=== PATIENT | male | born 1950 | race Caucasian/White ===

== ENCOUNTER 2021-12-02 18:04 | Emergency (ER) | payer OTHER ==
--- OUTSIDE RECORDS SUMMARY | 2021-12-02 18:08 | XMS REPORT | Continuity of Care Document ---
:1950 Author Organization [facility] t Address [address] [place] [address] Care Team Providers Name Role Phone Andry Mandujano MD Primary Care Physician Unavailable JOI JI Attending Clinician Unavailable Manny DANIELS Attending Clinician Unavailable Jeremiah HAND TRIMMER, J Attending Clinician Ebrahim HAND TRIMMER Attending Clinician Talya JI Attending Clinician Unavailable Lowell AMADOR, S Attending Clinician Garrison YEUNG P Attending Clinician JOI JI Admitting Clinician Unavailable Payers Payer Name Policy Type Policy Number Effective Date Expiration Date S tamy [facility] MED [id number] 2021 ADVANTAGE CHOICE 00:00:00 [facility] DUAL [id number] COMPLETE SNP [facility] MEDICARE PART A \\T\\ [id number] B - MEDICARE UNITED MEDICARE HMO [id number] 2020 00:00:00 [facility] [id number] 2020 00:00:00 Problems Condition Condition Condition Status Onset Resolution Last Treating Co mments Source Name Details Category Date Date Treatment Clinician Date Inflammati Inflammati Disease Active 2019-0 U nivers on of on of 01-01 ity of sacroiliac [place]ac [place] joint joint 00 Medical Branch Lumbar Lumbar Disease Active 2017- Univers spondylosi spondylosi 2-19 it y of s s 00:00: [place] 00 Medical Branch Myofascial Myofascial Disease Active 2017-05 U nivers pain pain 2-19 ity of 00:00: [place] 00 Medical Branch Lumbar Lumbar Disease Active 2017-05 Univers radiculopa radiculopa 2-19 it y of thy thy 00:00: [place] 00 Medical Branch Spinal Spinal Disease Active 2017-05 Univers stenosis stenosis 2-19 ity of of lumbar of lumbar [place] Dyslipidem Dyslipidem Disease Active U nivers ia ia 1-19 ity of 00:00: [place] [facility] Type 2 Type 2 Disease Active Univers diabetes diabetes 7-13 ity of mellitus mellitus 00:00: [place] without without 00 Medical complicati complicati Br anch on on Essential Essential Disease Active Uni vers hypertensi hypertensi 4-04 it y of on on 00:00: Medical Branch Allergies, Adverse Reactions, Alerts Allergy Allergy Status Severity Reaction(s) Onset Inactive Treating Comm ents Source Name Type Date Date Clinician NO KNOWN Allergy Active [facility] NO KNOWN Drug Active Univers ALLERGIE Class ity of S [facility] Social History Social Habit Start Date Stop Date Quantity Comments Source History of Chews Tobacco University of tobacco use [facility] History [facility] of Alcohol Comment Medicine History [facility] ge of Alcohol Std Medicine Drinks History [facility] of Alcohol Binge Medicine Exposure to 2021-11-17 2021-11-27 Not sure [facility] SARS-CoV-2 00:00:00 09:32:00 [facility] (event) [place] Cigarette 2021-10-13 2021-10-13 [facility] of pack-years 00:00:00 00:00:00 Medicine Alcohol intake 2021-10-13 2021-10-13 Lifetime [facility] Col lege of 00:00:00 00:00:00 non-drinker Medicine (finding) History [facility] 2020-06-22 2020-06-22 1 [facility] ge of Alcohol Frequency 00:00:00 00:00:00 Medicin e Tobacco Comment 2015-08-03 2015-08-03 10 years; quit 20 Un iversity of 00:00:00 00:00:00 years ago [facility] Tobacco use and 2015-08-03 2015-08-03 Former smokeless Uni versity of exposure 00:00:00 00:00:00 tobacco user [facility] Sex Ass[birth year] At [birth year] Universit y of 00:00:00 00:00:00 [facility] Smoking Status Start Date Stop Date Source Never smoked tobacco [facility] Medications Ordered Filled Start Stop Current Ordering Indication Dosage Frequency Signature Comments Components Source Medication Medication Date Date Medication? Clinician (SIG) Name Name naproxen 2021- Yes [id number] 500mg Take 1 Univers 500 mg 7-17 07-23 tablet by ity of tablet 00:00: 04:59 mouth in [place] 00 :00 the Medical morning Branch and 1 tablet in the evening. Take with meals. Do all this for 5 days. cyclobenzap 2021- Yes [id number] 10mg Take 1 Univers rine 10 mg 7-17 07-23 tablet by ity of tablet 00:00: 04:59 mouth 3 [place] 00 :00 ([facility]) [facility] times [place] daily as needed for Muscle Spasms for up to 5 days. naproxen 2021- Yes [id number] 500mg Take 1 Univers 500 mg 7-17 07-23 tablet by ity of tablet 00:00: 04:59 mouth in [place] 00 :00 the [facility] morning Branch and 1 tablet in the evening. Take with meals. Do all this for 5 days. cyclobenzap 2021- Yes [id number] 10mg Take 1 Univers rine 10 mg 7-17 07-23 tablet by ity of tablet 00:00: 04:59 mouth 3 [place] 00 :00 (three) [facility] times [place] daily as needed for Muscle Spasms for up to 5 days. naproxen 2021- Yes [id number] 500mg Take 1 Univers 500 mg 7-17 07-23 tablet by ity of tablet 00:00: 04:59 mouth in [place] 00 :00 the Medical morning Branch and 1 tablet in the evening. Take with meals. Do all this for 5 days. cyclobenzap 2021- Yes [id number] 10mg Take 1 Univers rine 10 mg 7-17 07-23 tablet by ity of tablet 00:00: 04:59 mouth 3 [place] 00 :00 (three) Medical times Branch daily as needed for Muscle Spasms for up to 5 days. lidocaine 5 0 2021- Yes [id number] 1{patch Apply 1 Univers % (700 717 07-18 } Patch to ity of mg/patch) 00:00: 04:59 [place] patch 00 :00 once now Medical for 1 Branch dose. lidocaine 5 0 2021- Yes [id number] 1{patch Apply 1 Univers % (700 717 07-18 } Patch to ity of mg/patch) 00:00: 04:59 [place] patch 00 :00 once now Medical for 1 Branch dose. Tamsulosin Yes .4mg Take 0.4 [place] parveen HCl 0.4 MG 6-02 mg by [place] CAPS 11:56: mouth. of 12 Medicin e Insulin Yes 20U Inject 20 [place] NPH, 6-02 Units into [place] Human,, 11:56: the skin. of Isophane, 12 Medicin 100 UNIT/ML e SUPN metformin Yes 1000mg Take 1,000 Eran (GLUCOPHAGE 6-02 mg by [place] ) 1000 MG 11:56: mouth. of tablet 12 Medicin e levothyroxi Yes 50ug Take 50 [place] parveen ne 6-02 mcg by [place] (SYNTHROID) 11:56: mouth. of 50 MCG 12 Medicin tablet e HUMULIN R Yes [facility] 100 UNIT/ML 5-16 College injection 00:00: of 00 Medicin e triamcinolo 0 2021- No [id number] 16mg Univers ne 09-08 ity of acetonide 22:15: 21:10 [place] (KENALOG) 00 :00 Medical injection Branch 16 mg triamcinolo 2021- No [id number] 16mg 16 mg, [facility] [place] ne 09-08 Intra-jose ity of acetonide 22:15: 21:10 jim [place] (KENALOG) 00 :00 ONCE, 1 Medical injection dose, On Branch 16 mg Areli 09/08/21 at 1715, Routine lisinopril 0 Yes [facility] (PRINIVIL, 3-30 [place] ZESTRIL) 40 00:00: of MG tablet 00 Medicin e pravastatin Yes [facility] (PRAVACHOL) 3-27 College 80 MG 00:00: of tablet 00 Medicin e glimepiride Yes [facility] (AMARYL) 4 3-18 College MG tablet 00:00: of 00 Medicin e oxybutynin Yes [id number] TAKE ONE [facility] (DITROPAN-X 2-28 TABLET BY Col donna Houser) 10 MG CR 00:00: MOUTH of tablet 00 DAILY Medicin e bromphenira 2020-05 Yes [id number] 5mL Take 5 mL Univers mine-pseudo 0-15 by mouth 4 it y of ephedrine-D 00:00: (four[place] M (BROMFED 00 times Medical DM) 2-30-10 daily as Bran ch mg/5 mL needed for syrup Congestion /Allergies . benzonatate 2020-05 Yes [id number] 200mg Take 2 Univers 100 mg 0-15 capsules ity of capsule 00:00: [place] mouth 2 [place] 00 (two) Medical times Branch daily as needed for Cough. azelastine 2020-05 Yes [id number] 1{spray Use 1 Univers 137 mcg 0-15 } [place] ity of (0.1 %) 00:00: each [place] nasal spray 00 nostril 2 Med ical (two) Branch times daily. Use in each nostril as directed fluticasone 2020-05 Yes [id number] 1{spray Use 1 Univers propionate 0-15 } [place] in ity o f 50 00:00: each [place] mcg/actuati 00 nostril Medic al on nasal daily. Branch spray codeine-gua 2020-05 Yes 5mL Take 5 mL U nivers ifenesin 0-15 by mouth ity of 10-100 mg/5 00:00: every 6 [place] as mL oral 00 (six) Medical solution hours as Branch needed for Cough. Indication s: cough bromphenira 2020-05 Yes [id number] 5mL Take 5 mL Univers mine-pseudo 0-15 by mouth 4 it y of ephedrine-D 00:00: (four[place] M (BROMFED 00 times Medical DM) 2-30-10 daily as Bran ch mg/5 mL needed for syrup Congestion /Allergies . benzonatate 2020-05 Yes [id number] 200mg Take 2 Univers 100 mg 0-15 capsules ity of capsule 00:00: [place] mouth 2 [place] 00 (two) Medical times Branch daily as needed for Cough. azelastine 2020-05 Yes [id number] 1{spray Use 1 Univers 137 mcg 0-15 } [place] ity of (0.1 %) 00:00: each [place] nasal spray 00 nostril 2 Med ical (two) Branch times daily. Use in each nostril as directed fluticasone 2020-05 Yes [id number] 1{spray Use 1 Univers propionate 0-15 } [place] in ity o f 50 00:00: each [place] mcg/actuati 00 nostril Medic al on nasal daily. Branch spray bromphenira 2020-05 Yes [id number] 5mL Take 5 mL Univers mine-pseudo 0-15 by mouth 4 it y of ephedrine-D 00:00: (four) [place] M (BROMFED 00 times Medical DM) 2-30-10 daily as Bran ch mg/5 mL needed for syrup Congestion /Allergies . benzonatate 2020-05 Yes [id number] 200mg Take 2 Univers 100 mg 0-15 capsules ity of capsule 00:00: [place] mouth 2 [place] 00 (two) Medical times Branch daily as needed for Cough. azelastine 2020-05 Yes [id number] 1{spray Use 1 Univers 137 mcg 0-15 } [place] in ity of (0.1 %) 00:00: each [place] nasal spray 00 nostril 2 Med ical (two) Branch times daily. Use in each nostril as directed fluticasone 2020-05 Yes [id number] 1{spray Use 1 Univers propionate 0-15 } [place] in ity o f 50 00:00: each [place] mcg/actuati 00 nostril Medic al on nasal daily. Branch spray bromphenira 2020-05 Yes [id number] 5mL Take 5 mL Univers mine-pseudo 0-15 by mouth 4 it y of ephedrine-D 00:00: (four) [place] M (BROMFED 00 times Medical DM) 2-30-10 daily as Bran ch mg/5 mL needed for syrup Congestion /Allergies . benzonatate 2020-05 Yes [id number] 200mg Take 2 Univers 100 mg 0-15 capsules ity of capsule 00:00: by mouth 2 [place] 00 (two) Medical times Branch daily as needed for Cough. azelastine 2020-05 Yes [id number] 1{spray Use 1 Univers 137 mcg 0-15 } [place] in ity of (0.1 %) 00:00: each [place] nasal spray 00 nostril 2 Med ical (two) Branch times daily. Use in each nostril as directed fluticasone 2020-05 Yes [id number] 1{spray Use 1 Univers propionate 0-15 } [place] in ity o f 50 00:00: each [place] mcg/actuati 00 nostril Medic al on nasal daily. Branch spray Pseudoeph-B 2020-05 Yes 5mL Take 5 mL [place] romphen-DM 0-15 by mouth. [place] ege 30-2-10 00:00: of MG/5ML SYRP 00 Medicin e codeine-gua 2020-05- No 5mL Take 5 mL Univers ifenesin 0-15 07-17 by mouth ity of 10-100 mg/5 00:00: 00:00 every 6 [place] mL oral 00 :00 (six) Medical solution hours as Branch needed for Cough. Indication s: cough tramadol Yes [id number] 1{tbl} Take 1 [place] (ULTRAM) 50 5-27 Tablet by Col lege MG tablet 00:00: mouth of 00 every 6 Medicin hours as e needed. sulfamethox Yes [id number] 1{tbl} Take 1 [facility] azole-trime 5-27 Tablet by Col lege thoprim 00:00: mouth two of (BACTRIM 00 times Medicin DS) 800-160 daily. e MG per tablet phenazopyri Yes Take by [facility] dine 5-27 mouth [place] (PYRIDIUM) 00:00: every 8 of 200 MG 00 hours PRN. Medicin tablet e docusate Yes [id number] 100mg Take 1 [place] sodium 5-27 capsule by [place] (COLACE) 00:00: mouth two of 100 MG 00 times Medicin capsule daily. e tramadol Yes [id number] 1{tbl} Take 1 [place] (ULTRAM) 50 5-27 Tablet by Col lege MG tablet 00:00: mouth of 00 every 6 Medicin hours as e needed. sulfamethox Yes [id number] 1{tbl} Take 1 [facility] azole-trime 5-27 Tablet by Col lege thoprim 00:00: mouth two of (BACTRIM 00 times Medicin DS) 800-160 daily. e MG per tablet phenazopyri Yes [id number] Take by [facility] dine 5-27 mouth [place] (PYRIDIUM) 00:00: every 8 of 200 MG 00 hours PRN. Medicin tablet e docusate Yes [id number] 100mg Take 1 [facility] [place] sodium 5-27 capsule by [place] (COLACE) 00:00: mouth two of 100 MG 00 times Medicin capsule daily. e oxybutynin Yes [id number] 10mg Take 1 [facility] (DITROPAN-X 2-12 Tablet by Col lege L) 10 MG CR 00:00: mouth of tablet 00 daily. Medicin e methylPREDN 2019-05 Yes [id number] 84mg Take 21 Univers ISolone 1-19 [id number] tablets by ity o f (MEDROL, 00:00: mouth [place] RUY,) 4 mg 00 SEE-INSTRU Med ical tablets CTIONS. Branch follow package directions meloxicam 2019-05 Yes [id number] 7.5mg Take 1 Univers 7.5 mg 1-19 [id number] tablet by ity of tablet 00:00: mouth [place] 00 daily. Medical Branch methylPREDN 2019-05 Yes [id number] 84mg Take 21 Univers ISolone 1-19 [id number] tablets by ity o f (MEDROL, 00:00: mouth [place] RUY,) 4 mg 00 SEE-INSTRU Med ical tablets CTIONS. Branch follow package directions methylPREDN 2019-05 Yes [id number] 84mg Take 21 Univers ISolone 1-19 [id number] tablets by ity o f (MEDROL, 00:00: mouth [place] RUY,) 4 mg 00 SEE-INSTRU Med ical tablets CTIONS. Branch follow package directions methylPREDN 2019-05 Yes [id number] 84mg Take 21 Univers ISolone 1-19 [id number] tablets by ity o f (MEDROL, 00:00: mouth [place] RUY,) 4 mg 00 SEE-INSTRU Med ical tablets CTIONS. Branch follow package directions meloxicam 2019-05- No [id number] 7.5mg Take 1 Univers 7.5 mg 06-01 [id number] tablet by ity of tablet 00:00: 00:00 mouth [place] 00 :00 daily. Medical Branch atorvastati 2017-0 Yes [id number] 20mg Take 1 Univers n (LIPITOR) 5-14 tablet by ity of 20 mg 00:00: mouth at [place] tablet 00 bedtime. Medical Branch atorvastati 0 Yes [id number] 20mg Take 1 Univers n (LIPITOR) 5-14 tablet by ity of 20 mg 00:00: mouth at [place] tablet 00 bedtime. Medical Branch atorvastati 0 Yes [id number] 20mg Take 1 Univers n (LIPITOR) 5-14 tablet by ity of 20 mg 00:00: mouth at [place] tablet 00 bedtime. Medical Branch atorvastati 0 Yes [id number] 20mg Take 1 Univers n (LIPITOR) 5-14 tablet by ity of 20 mg 00:00: mouth at [place] tablet 00 bedtime. Medical Branch lisinopril 2017-0 Yes [id number] 40mg Take 1 U nivers 40 mg 5-08 tablet by ity of tablet 00:00: mouth [place] 00 daily. Medical Branch lisinopril 2017-0 Yes [id number] 40mg Take 1 U nivers 40 mg 5-08 tablet by ity of tablet 00:00: mouth [place] 00 daily. Medical Branch lisinopril 2017-0 Yes [id number] 40mg Take 1 U nivers 40 mg 5-08 tablet by ity of tablet 00:00: mouth [place] 00 daily. Medical Branch lisinopril 2017-0 Yes [id number] 40mg Take 1 U nivers 40 mg 5-08 tablet by ity of tablet 00:00: mouth [place] 00 daily. Medical Branch acetaminoph 2016-05 Yes [id number] 2 - 1 Univers en-codeine 2-31 tab Every ity of 300-30 mg 00:00: 4hrs as [place] tablet 00 needed for Medical pain or Branch cough requiring narcotic acetaminoph 2016-05 Yes [id number] 2 - Univers en-codeine 2-31 tab Every ity of 300-30 mg 00:00: 4hrs as [place] tablet 00 needed for Medical pain or Branch cough requiring narcotic acetaminoph 2016-05 Yes [id number] 05/15 Univers en-codeine 2-31 tab Every ity of 300-30 mg 00:00: 4hrs as [place] tablet 00 needed for Medical pain or Branch cough requiring narcotic acetaminoph 2016-05 Yes [id number] 05/15 Univers en-codeine 2-31 tab Every ity of 300-30 mg 00:00: 4hrs as [place] tablet 00 needed for Medical pain or Branch cough requiring narcotic AMLODIPINE 2016-05 Yes [id number] TAKE ONE Univers 10 mg 2-22 TABLET BY ity of tablet 00:00: MOUTH ONCE DAILY Medical Branch AMLODIPINE 2016-05 Yes [id number] TAKE ONE Univers 10 mg 2-22 TABLET BY ity of tablet 00:00: MOUTH ONCE DAILY Medical Branch AMLODIPINE 2016-05 Yes [id number] TAKE ONE Univers 10 mg 2-22 TABLET BY ity of tablet 00:00: MOUTH ONCE DAILY Medical Branch AMLODIPINE 2016-05 Yes [id number] TAKE ONE Univers 10 mg 2-22 TABLET BY ity of tablet 00:00: MOUTH ONCE DAILY Medical Branch insulin Yes [id number] Take 22 Un aditya 70/30 100 8-16 units ity of unit/mL 00:00: before (30) 00 breakfast Medical injection and 20 Branch units before dinner- Take 30 minutes before meals twice daily insulin Yes [id number] Take 22 Un aditya 70/30 100 8-16 units ity of unit/mL 00:00: before (30) 00 breakfast Medical injection and 20 Branch units before dinner- Take 30 minutes before meals twice daily insulin Yes [id number] Take 22 Un aditya 70/30 100 8-16 units ity of unit/mL 00:00: before (-30) 00 breakfast Medical injection and 20 Branch units before dinner- Take 30 minutes before meals twice daily insulin Yes [id number] Take 22 Un aditya 70/30 100 8-16 units ity of unit/mL 00:00: before (30) 00 breakfast Medical injection and 20 Branch units before dinner- Take 30 minutes before meals twice daily metformin Yes [id number] 1000mg Take 2 Univers ER 500 mg 5-10 tablets by ity of 24 hr 00:00: mouth 2 [place] tablet 00 (two) Medical times Branch daily with meals. glimepiride Yes [id number] 4mg Take 1 Univers (AMARYL) 4 5-10 tablet by ity of mg tablet 00:00: mouth 2 [place] 00 (two) Medical times Branch daily. metformin Yes [id number] 1000mg Take 2 Univers ER 500 mg 5-10 tablets by ity of 24 hr 00:00: mouth 2 [place] tablet 00 (two) Medical times Branch daily with meals. glimepiride Yes [id number] 4mg Take 1 Univers (AMARYL) 4 5-10 tablet by ity of mg tablet 00:00: mouth 2 [place] (two) Medical times Branch daily. metformin Yes [id number] 1000mg Take 2 Univers ER 500 mg 5-10 tablets by ity of 24 hr 00:00: mouth 2 [place] tablet 00 (two) Medical times Branch daily with meals. glimepiride Yes [id number] 4mg Take 1 Univers (AMARYL) 4 5-10 tablet by ity of mg tablet 00:00: mouth 2 (two) Medical times Branch daily. metformin Yes [id number] 1000mg Take 2 Univers ER 500 mg 5-10 tablets by ity of 24 hr 00:00: mouth 2 [place] tablet 00 (two) Medical times Branch daily with meals. glimepiride Yes [id number] 4mg Take 1 Univers (AMARYL) 4 5-10 tablet by ity of mg tablet 00:00: mouth 2 (two) Medical times Branch daily. NAPROXEN Yes TAKE ONE Unive rs 500 mg 3-27 TABLET BY ity of tablet 00:00: MOUTH 00 TWICE Medical DAILY WITH Branch MEALS NAPROXEN 2021- No TAKE ONE Univ ers 500 mg 3-27 07-17 TABLET BY ity of tablet 00:00: 00:00 MOUTH [place] 00 :00 TWICE Medical DAILY WITH Branch MEALS mupirocin 2 Yes [id number] Apply to Univers % ointment 08-05 [id number] area(s) 3 it y of 00:00: (three) [place] 00 times Medical daily. Branch mupirocin 2 Yes [id number] Apply to Univers % ointment 3-25 [id number] area(s) 3 it y of 00:00: (three) [place] 00 times Medical daily. Branch mupirocin 2 Yes [id number] Apply to Univers % ointment 3-25 [id number] area(s) 3 it y of 00:00: (three) [place] 00 times Medical daily. Branch mupirocin 2 Yes [id number] Apply to Univers % ointment 3-25 [id number] area(s) 3 it y of 00:00: (three) [place] 00 times Medical daily. Branch insulin Yes [id number] Use twice Univers syringe,saf 4-04 daily ity of etyneedle 00:00: [place] ([facility] Medical INSULIN Branch SAFETY SYRNG) 1 mL 29 gauge x 1/2" Syrg insulin Yes [id number] Use twice Univers syringe,saf 4-04 daily ity of etyneedle 00:00: [place] ([facility] Medical INSULIN Branch SAFETY SYRNG) 1 mL 29 gauge x 1/2" Syrg insulin Yes [id number] Use twice Univers syringe,saf 4-04 daily ity of etyneedle 00:00: [place] ([facility] Medical INSULIN Branch SAFETY SYRNG) 1 mL 29 gauge x 1/2" Syrg insulin Yes [id number] Use twice Univers syringe,saf 4-04 daily ity of etyneedle 00:00: [place] ([facility] Medical INSULIN Branch SAFETY SYRNG) 1 mL 29 gauge x 1/2" Syrg Vital Signs Vital Name Observation Time Observation Value Comments Source HEIGHT 2020-10-07 08:43:00 180.3 cm WEIGHT 2020-10-07 08:43:00 107.14 kg HEIGHT 2020-09-17 14:46:00 180.3 cm WEIGHT 2020-09-17 14:46:00 102.059 kg Systolic blood 2021-11-27 14:34:00 172 mm[Hg] Univer sity of pressure [facility] Diastolic blood 2021-11-27 14:34:00 76 mm[Hg] Unive rsity of pressure [facility] Heart rate 2021-11-27 14:33:00 74 /min Universi ty of [facility] Body temperature 2021-11-27 14:33:00 36.11 Joelle [facility] Respiratory rate 2021-11-27 14:33:00 16 /min [facility] Body height 2021-11-27 14:33:00 180.3 cm Universi ty of [facility] Body weight 2021-11-27 14:33:00 103.783 kg Universi ty of [facility] BMI 2021-11-27 14:33:00 31.91 kg/m2 Universi ty of [facility] Oxygen saturation in 2021-11-27 14:33:00 96 /min [facility] Arterial blood by [facility] Pulse oximetry Branch Systolic blood 2021-10-13 16:09:00 150 mm[Hg] [facility] pressure Medicine Diastolic blood 2021-10-13 16:09:00 76 mm[Hg] [facility] pressure Medicine Heart rate 2021-10-13 16:09:00 73 /min [facility] Systolic blood 2021-09-08 21:08:00 173 mm[Hg] Univer sity of [facility] Diastolic blood 2021-09-08 21:08:00 82 mm[Hg] [facility] Heart rate 2021-09-08 21:08:00 65 /min Universi ty of [facility] Body height 2021-09-08 21:00:00 180.3 cm Universi ty of [facility] Body weight 2021-09-08 21:00:00 104.327 kg Universi ty of [facility] BMI 2021-09-08 21:00:00 32.08 kg/m2 Universi ty of [facility] HEIGHT 2020-10-07 08:43:00 180.3 cm WEIGHT 2020-10-07 08:43:00 107.14 kg HEIGHT 2020-09-17 14:46:00 180.3 cm WEIGHT 2020-09-17 14:46:00 102.059 kg Procedures Procedure Date / Time Performed Performing Clinician Sourc e XR LUMBAR SPINE 3 VW 2021-11-27 15:25:00 Ciaran Daniels [facility] KERRY,POST-VOID 2021-10-13 00:00:00 [facility],NON-IMG Medicine KERRY,POST-VOID 2021-10-13 00:00:00 Moriah Ji [facility],NON-IMG Medicine POCT URINALYSIS 2021-10-13 00:00:00 [facility] of DIPSTICK Medicine Plan of Care Planned Activity Planned Date Details Comments Source Future Scheduled 2021-10-13 Screening for [facility] Col lege of Test 11:18:30 malignant neoplasm of Medici ne colon (procedure) [code = 671371149] Future Scheduled 2021-10-13 COVID-19 Vaccine (#1) [facility] Test 11:18:30 [code = COVID-19 Medicine Vaccine (#1)] Future Scheduled 2021-10-13 TETANUS SHOT (ADULT) [facility] Test 11:18:30 [code = TETANUS SHOT Medicin e (ADULT)] Future Scheduled 2021-10-13 BMI FOLLOW UP PLAN [facility] Test 11:18:30 [code = BMI FOLLOW UP Medici ne PLAN] Future Scheduled 2021-10-13 Hepatitis C screening [facility] Test 11:18:30 (procedure) [code = Medicine [id number]] Future Scheduled 2021-10-13 ZOSTER VACCINE (1 of [facility] of Test 11:18:30 2) [code = ZOSTER Medicine VACCINE (1 of 2)] Future Scheduled 2021-10-13 FALL SCREEN [code = [facility] of Test 11:18:30 FALL SCREEN] Medicine Future Scheduled 2021-10-13 Pneumococcal 65+ (1 - [facility] of Test 11:18:30 PCV) [code = Medicine Pneumococcal 65+ (1 - PCV)] Future Scheduled 2021-10-13 MEDICARE AWV (Initial) [facility] of Test 11:18:30 [code = MEDICARE AWV Medicin e (Initial)] Future Scheduled 2021-10-13 FLU VACCINE > 6 MONTHS [facility] of Test 11:18:30 [code = FLU VACCINE > Medici ne 6 MONTHS] Future Scheduled 2020-11-12 Screening for [facility] Col lege of Test 11:35:55 malignant neoplasm of Medici ne colon (procedure) [code = [id number]] Future Scheduled 2020-11-12 COVID-19 Vaccine (1) [facility] of Test 11:35:55 [code = COVID-19 Medicine Vaccine (1)] Future Scheduled 2020-11-12 TETANUS SHOT (ADULT) [facility] of Test 11:35:55 [code = TETANUS SHOT Medicin e (ADULT)] Future Scheduled 2020-11-12 BMI FOLLOW UP PLAN [facility] Test 11:35:55 [code = BMI FOLLOW UP Medici ne PLAN] Future Scheduled 2020-11-12 Hepatitis C screening [facility] Test 11:35:55 (procedure) [code = Medicine [id number]] Future Scheduled 2020-11-12 ZOSTER VACCINE (1 of [facility] Test 11:35:55 2) [code = ZOSTER Medicine VACCINE (1 of 2)] Future Scheduled 2020-11-12 FALL SCREEN [code = [facility] of Test 11:35:55 FALL SCREEN] Medicine Future Scheduled 2020-11-12 PNEUMOVAX >=65 [facility] of Test 11:35:55 (PPSV23) [code = Medicine PNEUMOVAX >=65 (PPSV23)] Future Scheduled 2020-11-12 MEDICARE IPPE (WELCOME B [facility] Test 11:35:55 TO MEDICARE) [code = Medicin e MEDICARE IPPE (WELCOME TO MEDICARE)] Future Scheduled 2020-11-12 FLU VACCINE > 6 MONTHS B [facility] Test 11:35:55 [code = FLU VACCINE > Medici ne 6 MONTHS] Encounters Start End Encounter Admission Attending Care Care Encounter Source Date/Time Date/Time Type Type Clinicians Facility Department ID 2021-02-19 Outpatient GARRISON [facility] Surgery [id number] [facility] 15:46:05 MORIAH 2021-11-27 2021-11-27 Outpatient R [facility] [id number] [facility] 10:01:43 23:59:00 CIARAN roberts [facility] 2021-11-27 2021-11-27 [facility] [id number] [facility] 10:01:43 23:59:00 Encounter Ciaran Bryant [facility] [id number] Brayan [id number] Lance as SOCO?BLEA [id number] Me jordan EAST 808 [facility] OFFICE [facility] 2021-11-27 2021-11-27 Urgent JeremiahCiaran snell Manny [facility] [id number] [id number] Univers 09:40:00 10:09:43 Care Tuyet Devine [facility] [id number] ity [facility] [id number] Lance as SOCO?BLEA [id number] Me jordan EAST 370 [facility] OFFICE [facility] 2021-11-27 2021-11-27 Outpatient R [facility] [id number] Univers 10:05:00 10:05:00 CIARAN [id number] ity o f [facility] 2021-11-27 2021-11-27 [facility] [id number] Univers 00:00:00 00:00:00 [facility] [id number] ity of [place] 4.2.7.2.686 Lance as SOCO?BLEA [id number] Or jordan EAST 370 [facility] OFFICE [facility] 2021-10-13 2021-10-13 Office ALYCE JI [id number] [facility] 10:36:55 11:18:44 Visit [facility]RISTCONSTANTINO [facility]ATOR 350.1.13.21 College Y 0.2.7.2.686 of [id number] [facility] 300 e 2021-09-08 2021-09-08 [facility] [id number] Univers 16:00:00 16:15:00 Visit [facility] [id number] it y [facility] [id number] Lance as SOCO?BLEA [phone] Me jordan EAST 198 [facility] OFFICE [facility] 2020-12-23 2020-12-23 Outpatient ALYCE JI [id number] [facility] 10:33:38 11:13:46 [facility] of Medicin e 2020-11-12 2020-11-12 Office ALYCE Ji [id number] [facility] 11:58:41 12:08:41 Visit Christelaineer AMBULATOR [id number] College P Y 0.2.7.2.686 [id number] Medi mason 300 e 2020-10-04 2020-10-04 Outpatient [facility] [id number] [facility] 00:00:00 00:00:00 2020-10-04 2020-10-04 Outpatient [facility] [id number] [facility] 00:00:00 00:00:00 2020-10-04 2020-10-04 Outpatient [facility] [id number] [facility] 00:00:00 00:00:00 2020-09-17 2020-09-17 Outpatient [facility] [id number] [facility] 00:00:00 00:00:00 Results Test Description Test Time Test Comments Results Result Comments Source KERRY,POST-VOID RES,US,NON-IMG 2021-10-13 00:00:00 Test Item Value Reference Range Interpretation Comme nts PVR (test code = 6116) cc[facility]ml [id number] 09:04:00 Test Item Value Reference Range Interpretation Comments POC-GLUCOSE METER 163 mg/dL 70-110 H : TESTED A T [facility] 6720 (BEAKER) (test code = [place], 1538) [address]3355: Earth Science Technician/Techni karine ID = [id number] for PRIMITIVO AGUIRRE (Teresa)DEBORAH URINE [id number] 10:47:00 Test Item Value Reference Range Interpretation Comments CULTURE (BEAKER) (test <10,000 col/mL skin code = 1095) yesy SARS-COV2/RT-PCR ([facility])2020-10-04 22:28:00 Test Item Value Reference Range Interpretation Comments SARS-COV2/RT-PCR (test Negative Not Detected, Negative, code = 8627373) See external report for linked test SARS-COV-2 PERFORMING LAB [facility] CHRIST (test code = 3251368) Negative result for this test determines that SARS-CoV-2 RNA was not present in the specimen above the Limit of Detection (LOD). However, Negative results do not preclude SARS-CoV-2 infection and should not be used as the sole basis for treatment or patient management decisions. Negative results mustbe combined with clinical observations, patient history, and epidemiological information. A false negative result may occur if a specimen is improperly collected, transported or handled. A false negative result should be considered if patient's recent exposures or clinical presentation indicate that COVID-19 (SARS-CoV-2) is likely and diagnostic tests for other causes of illness are negative. Re-testing should be considered in cases of suspected false negatives.The limit of detection for this assay is 100 copies/mL.This SARS CoV-2 test is a real-time RT-PCR test intended for the qualitative detection of nucleic acid from SARS-CoV-2 in a nasopharyngeal swab specimen collected from individuals susp ected of COVID-19 by their healthcare provider.This test has not been Food and Drug Administration (FDA) cleared or approved. This is a modified version of an approved Emergency Use Authorization (EUA) and is in the process of review by the FDA. Once authorized by the FDA, the issued EUA will be effective until the declaration that circumstances exist justifying the authorization of the emergency use of in vitro diagnostic tests for detection and/or diagnosis of COVID-19 is terminated under Section 564(b)(2) of the Act or the EUA is revoked under Section 564(g) of the Act.Testing was performed using the Lawrence SARS-CoV-2 assay.Fact Sheet for Healthcare Providers:https://www.Voxie.lawrence/genesis/ BC_BTTA-IyV-9_ZOR_Orjj_Djwnb_30-746468.pdfFact Sheet for Healthcare Patients:https://www.Voxie.ab viktor/genesis/HE_WMIF-BeG-1_Byrfhfw_Poft_Ytcpw_ZK_95-755984J1.pdfPerforming Laboratory:[facility], [place] [address]LKA AND CREATININE [id number] 10:33:00 Test Item Value Reference Range Interpretation Comments BLOOD UREA NITROGEN 15 mg/dL 7-21 (BEAKER) (test code = 354) CREATININE (BEAKER) 0.97 mg/dL 0.57-1.25 Specimen slightly (test code = 358) hemolyzed BUN/CREAT RATIO 15 For a normal (BEAKER) (test code individu al on a = 6191200061) normal diet, t he reference inter man for the mass ra malini ranges between 12:1 and 20:1 (BUN i n mg/dL/creatinin e in mg/dL) EGFR (BEAKER) (test 77 mL/min/1.73 ESTIMA ART GFR IS code = 1092) sq m NOT ACCURATE CREATININE CLEARANCE IN PREDICTING GLOMERULAR FILTRATION RATE . ESTIMATED GFR I S NOT APPLICABLE FOR DIALYSIS PATIEN TS. BASIC METABOLIC [id number] 10:33:00 Test Item Value Reference Range Interpretation Comments SODIUM (BEAKER) 136 meq/L 136-145 (test code = 381) POTASSIUM (BEAKER) 4.5 meq/L 3.5-5.1 Specimen slightly (test code = 379) hemolyzed CHLORIDE (BEAKER) 100 meq/L 98-107 (test code = 382) CO2 (BEAKER) (test 29 meq/L 22-29 code = 355) BLOOD UREA NITROGEN 15 mg/dL 7-21 (BEAKER) (test code = 354) CREATININE (BEAKER) 0.97 mg/dL 0.57-1.25 Specimen slightly (test code = 358) hemolyzed GLUCOSE RANDOM 150 mg/dL 70-105 H (BEAKER) (test code = 652) CALCIUM (BEAKER) 9.6 mg/dL 8.4-10.2 (test code = 697) EGFR (BEAKER) (test 77 mL/min/1.73 ESTIMA ART GFR IS code = 1092) sq m NOT ACCURATE CREATININE CLEARANCE IN PREDICTING GLOMERULAR FILTRATION RATE . ESTIMATED GFR I S NOT APPLICABLE FOR DIALYSIS PATIEN TS. Earth Science Technician ID - CARLA FURINALYSIS W/ [id number] 10:30:00 Test Item Value Reference Range Interpretation Comments COLOR (BEAKER) (test code Yellow = 470) CLARITY (BEAKER) (test Clear code = 469) SPECIFIC GRAVITY UA 1.011 1.001-1.035 (BEAKER) (test code = 468) PH UA (BEAKER) (test code 5.5 5.0-8.0 = 467) PROTEIN UA (BEAKER) (test Negative Negative code = 464) GLUCOSE UA (BEAKER) (test Negative Negative code = 365) KETONES UA (BEAKER) (test Negative Negative code = 371) BILIRUBIN UA (BEAKER) Negative Negative (test code = 462) BLOOD UA (BEAKER) (test Negative Negative code = 461) NITRITE UA (BEAKER) (test Negative Negative code = 465) LEUKOCYTE ESTERASE UA Negative Negative (BEAKER) (test code = 466) UROBILINOGEN UA (BEAKER) 0.2 mg/dL 0.2-1.0 (test code = 463) RBC UA (BEAKER) (test code < /HPF = 519) WBC UA (BEAKER) (test code 0 /HPF = 520) MUCUS (BEAKER) (test code Rare = 1574) SOURCE(BEAKER) (test code Urine, Clean Catch = 2795) Earth Science Technician ID - [auto]Earth Science Technician ID - techCBC W/PLT COUNT & AUTO DIFFERENTIAL 2020-10-04 10:17:00 Test Item Value Reference Range Interpretation Comments WHITE BLOOD CELL COUNT (BEAKER) 7.7 K/ L 3.5-10.5 (test code = 775) RED BLOOD CELL COUNT (BEAKER) 4.43 M/ L 4.63-6.08 L (test code = 761) HEMOGLOBIN (BEAKER) (test code = 13.3 GM/DL 13.7-17.5 L 410) HEMATOCRIT (BEAKER) (test code = 39.8 % 40.1-51.0 L 411) MEAN CORPUSCULAR VOLUME (BEAKER) 89.8 fL 79.0-92.2 (test code = 753) MEAN CORPUSCULAR HEMOGLOBIN 30.0 pg 25.7-32.2 (BEAKER) (test code = 751) MEAN CORPUSCULAR HEMOGLOBIN CONC 33.4 GM/DL 32.3-36.5 (BEAKER) (test code = 752) RED CELL DISTRIBUTION WIDTH 13.4 % 11.6-14.4 (BEAKER) (test code = 412) PLATELET COUNT (BEAKER) (test 282 K/CU MM 150-450 code = 756) MEAN PLATELET VOLUME (BEAKER) 9.5 fL 9.4-12.4 (test code = 754) NUCLEATED RED BLOOD CELLS 0 /100 WBC 0-0 (BEAKER) (test code = 413) NEUTROPHILS RELATIVE PERCENT 59 % (BEAKER) (test code = 429) LYMPHOCYTES RELATIVE PERCENT 27 % (BEAKER) (test code = 430) MONOCYTES RELATIVE PERCENT 10 % (BEAKER) (test code = 431) EOSINOPHILS RELATIVE PERCENT 3 % (BEAKER) (test code = 432) BASOPHILS RELATIVE PERCENT 0 % (BEAKER) (test code = 437) NEUTROPHILS ABSOLUTE COUNT 4.55 K/ L 1.78-5.38 (BEAKER) (test code = 670) LYMPHOCYTES ABSOLUTE COUNT 2.08 K/ L 1.32-3.57 (BEAKER) (test code = 414) MONOCYTES ABSOLUTE COUNT (BEAKER) 0.77 K/ L 0.30-0.82 (test code = 415) EOSINOPHILS ABSOLUTE COUNT 0.23 K/ L 0.04-0.54 (BEAKER) (test code = 416) BASOPHILS ABSOLUTE COUNT (BEAKER) 0.03 K/ L 0.01-0.08 (test code = 417) IMMATURE GRANULOCYTES-RELATIVE 0 % 0-1 PERCENT (BEAKER) (test code = 2801)
--- NOTE | 2021-12-02 20:14 | RAD REPORT ---
EXAM DESCRIPTION: CT - Spine Lumbar Wo Con - 12/02/2021 8:08 pm CLINICAL HISTORY: Radiculopathy. radiculopathy COMPARISON: <Comparisons> TECHNIQUE: Axial noncontrast CT imaging of the lumbar spine was performed with coronal and sagittal re-formatted images. All CT scans are performed using dose optimization technique as appropriate and may include automated exposure control or mA/KV adjustment according to patient size. FINDINGS: No acute lumbar spine fracture seen. No aggressive marrow pattern or malalignment. Paraspinal tissues are normal in thickness. No paraspinal abscess or hematoma seen. Moderate multilevel degenerative spondylosis with disc thinning and posterior osteophyte formation no soledad. Vacuum disc degeneration is present at L2-3, L4-5 and L5-S1. IMPRESSION: Moderately severe multilevel lumbar degenerative changes. No acute fracture seen.
[2021-12-02] MEDS ORDERED: HYDROMORPHONE HCL 0.5 MG/0.5 ML INJ ONE ×2 (20:38→22:18)
[2021-12-02] MEDS ORDERED: ONDANSETRON 4 MG/2 ML VIAL ONE (20:38)
[2021-12-02] MEDS ORDERED: KETOROLAC 30 MG/ML INJ ONE (20:38)
--- NOTE | 2021-12-02 22:30 | ER ---
Nurse's Notes [facility] Name: Sandip Mon Age: 71 yrs Sex: Male : 1950 Arrival Date: 12/02/2021 Time: 18:06 Bed 18 Private MD: Kyler Mandujano Diagnosis: Radiculopathy Presentation: 12/02 18:11 Chief complaint: Patient states: Back pain - Was here yesterday but can not stand the ld1 pain. Coronavirus screen: At this time, the client does not indicate any symptoms associated with coronavirus-19. Ebola Screen: No symptoms or risks identified at this time. Initial Sepsis Screen: Does the patient meet any 2 criteria? No. Patient's initial sepsis screen is negative. Does the patient have a suspected source of infection? No. Patient's initial sepsis screen is negative. Risk Assessment: Do you want to hurt yourself or someone else? Patient reports no desire to harm self or others. Onset of symptoms was December 02, 2021. 18:11 Method Of Arrival: Wheelchair ld1 18:11 Acuity: ARNULFO 4 ld1 Triage Assessment: 18:11 General: Appears in no apparent distress. comfortable, Behavior is calm, cooperative, ld1 appropriate for age. Pain: Complains of pain in back Pain radiates to left leg Pain currently is 10 out of 10 on a pain scale. EENT: No signs and/or symptoms were reported regarding the EENT system. Neuro: Level of Consciousness is awake, alert, obeys commands, Oriented to person, place, time, situation. Cardiovascular: Capillary refill < 3 seconds Patient's skin is warm and dry. Respiratory: Airway is patent Respiratory effort is even, unlabored. GI: Abdomen is round non-distended. : No signs and/or symptoms were reported regarding the genitourinary system. Derm: No signs and/or symptoms reported regarding the dermatologic system. Musculoskeletal: No signs and/or symptoms reported regarding the musculoskeletal system. Historical: - Home Meds: 18:11 amlodipine 2.5 mg tab 1 tab once daily [Active]; ld1 - PMHx: 18:11 diabetes mellitus; Hypertensive disorder; ld1 - PSHx: 18:11 Appendectomy; back surgery; Prostate surgery; ld1 - Immunization history:: Adult Immunizations up to date, Client reports receiving the 2nd dose of the Covid vaccine. - Social history:: Smoking status: Patient denies any tobacco usage or history of. Patient/guardian denies using alcohol. Screenin:59 Abuse screen: Denies threats or abuse. Nutritional screening: No deficits noted. bh1 Tuberculosis screening: No symptoms or risk factors identified. Fall Risk None identified. Assessment: 18:21 Neuro: No deficits noted. bh1 20:55 General: Appears in no apparent distress. Behavior is calm, cooperative. Neuro: Level kd3 of Consciousness is awake, alert, obeys commands, Oriented to person, place, time, situation. Respiratory: Airway is patent Trachea midline Respiratory effort is even, unlabored. Vital Signs: 18:11 BP 146 / 88; Pulse 104; Resp 18; Temp 97.7(O); Pulse Ox 97% on R/A; Weight 99.79 kg; ld1 Height 5 ft. 11 in. (180.34 cm); Pain 10/10; 18:58 BP 143 / 74; Pulse 88; Resp 20; Pulse Ox 100% on R/A; bh1 20:54 BP 136 / 78; Pulse 80; Resp 16; Pulse Ox 95% on R/A; kd3 22:24 BP 131 / 83; Pulse 103; Resp 19; Pulse Ox 95% on R/A; kd3 22:57 BP 127 / 82; Pulse 99; Resp 18; Pulse Ox 93% on R/A; kd3 18:11 Body Mass Index 30.68 (99.79 kg, 180.34 cm) ld1 ED Course: 18:06 Patient arrived in ED. mr 18:06 Kyler Mandujano is Private Physician. mr 18:11 Arm band placed on right wrist. ld1 18:12 Triage completed. ld1 18:21 Annie Nath, JIMBO is Primary Nurse. bh1 18:21 Patient has correct armband on for positive identification. Bed in low position. Call [facility] light in reach. Side rails up X 1. Pulse ox on. NIBP on. Door closed. Noise minimized. Head of bed elevated. 18:22 No apparent distress. Resting quietly. Awaiting ED provider evaluation. 1 18:22 No provider procedures requiring assistance completed. Patient did not have IV access [facility] during this emergency room visit. 18:59 No apparent distress. Resting quietly. Awaiting ED provider evaluation. bh1 19:04 Michel Marcum MD is Attending Physician. sp3 19:09 Primary Nurse role handed off by Annie Nath RN kd3 19:09 Luann Dominguez, RN is Primary Nurse. kd3 20:10 CT Lumbar Spine Wo Con In Process Unspecified. EDMS Administered Medications: 20:37 Drug: Dilaudid (HYDROmorphone) 1 mg Route: IVP; Site: right antecubital; kd3 22:58 Follow up: Response: No adverse reaction kd3 20:37 Drug: Zofran (Ondansetron) 4 mg Route: IVP; Site: right antecubital; kd3 22:58 Follow up: Response: No adverse reaction kd3 20:37 Drug: Ketorolac 30 mg Route: IVP; Site: right antecubital; kd3 22:58 Follow up: Response: No adverse reaction kd3 22:23 Drug: Dilaudid (HYDROmorphone) 1 mg Route: IVP; Site: right antecubital; kd3 22:58 Follow up: Response: No adverse reaction kd3 Medication: 18:21 VIS not applicable for this client. [facility] Outcome: 22:30 Discharge ordered by . sp3 22:58 Discharged to home ambulatory. kd3 22:58 Condition: stable 22:58 Discharge instructions given to patient, family, Instructed on discharge instructions, follow up and referral plans. Demonstrated understanding of instructions, follow-up care. 22:58 Patient left the ED. kd3 Signatures: Dispatcher [employer] EDMO Winnie Castillo SuzanneGabbi, RN RN 1 Michel Marcum MD MD sp3 Luann Dominguez, JIMBO RN kd3 Annie Nath RN RN [facility]
--- NOTE | 2021-12-02 22:30 | EDPHYS ---
Physician Documentation [facility] Name: Sandip Mon Age: 71 yrs Sex: Male : 1950 Arrival Date: 12/02/2021 Time: 18:06 Bed 18 Private MD: Kyler Mandujano ED Physician Michel Marcum HPI: 12/02 19:38 This 71 yrs old Male presents to ER via Wheelchair with complaints of Back Pain. sp3 19:38 71-year-old male with history of diabetes and hypertension presents with right-sided sp3 radiculopathy. Patient was seen yesterday by me as well and returns for continuing pain. Yesterday I administered Dilaudid 2 mg intramuscularly and discharge patient on tramadol p.o., Medrol Dosepak p.o., and Flexeril p.o. Patient was trying to get into see his surgeon Dr. Bermudez but cannot get an appointment until next week. Patient states that his radiculopathy is increasing to the point where he is unable to fully walk and is having to his bathroom at the bedside. No loss of bowel or bladder control noted.. Historical: - Home Meds: 18:11 amlodipine 2.5 mg tab 1 tab once daily [Active]; ld1 - PMHx: 18:11 diabetes mellitus; Hypertensive disorder; ld1 - PSHx: 18:11 Appendectomy; back surgery; Prostate surgery; ld1 - Immunization history:: Adult Immunizations up to date, Client reports receiving the 2nd dose of the Covid vaccine. - Social history:: Smoking status: Patient denies any tobacco usage or history of. Patient/guardian denies using alcohol. ROS: 19:39 Constitutional: Negative for fever, chills, and weight loss, Eyes: Negative for injury, sp3 pain, redness, and discharge, ENT: Negative for injury, pain, and discharge, Neck: Negative for injury, pain, and swelling, Cardiovascular: Negative for chest pain, palpitations, and edema, Respiratory: Negative for shortness of breath, cough, wheezing, and pleuritic chest pain, Abdomen/GI: Negative for abdominal pain, nausea, vomiting, diarrhea, and constipation, MS/Extremity: Negative for injury and deformity, Skin: Negative for injury, rash, and discoloration. 19:39 All other systems are negative. Exam: 19:39 Constitutional: This is a well developed, well nourished patient who is awake, alert, sp3 and in no acute distress. Head/Face: Normocephalic, atraumatic. Chest/axilla: Normal chest wall appearance and motion. Nontender with no deformity. No lesions are appreciated. Cardiovascular: Regular rate and rhythm with a normal S1 and S2. No gallops, murmurs, or rubs. Normal PMI, no JVD. No pulse deficits. Respiratory: Lungs have equal breath sounds bilaterally, clear to auscultation and percussion. No rales, rhonchi or wheezes noted. No increased work of breathing, no retractions or nasal flaring. Abdomen/GI: Soft, non-tender, with normal bowel sounds. No distension or tympany. No guarding or rebound. No evidence of tenderness throughout. Back: No spinal tenderness. No costovertebral tenderness. Full range of motion. Skin: Warm, dry with normal turgor. Normal color with no rashes, no lesions, and no evidence of cellulitis. Psych: Awake, alert, with orientation to person, place and time. Behavior, mood, and affect are within normal limits. 19:39 Musculoskeletal/extremity: Swollen joint exams are normal. Patient does have pain on straight leg raise on the right. Sensory exams are normal other than range of motion. Distal pulses are normal.. Vital Signs: 18:11 BP 146 / 88; Pulse 104; Resp 18; Temp 97.7(O); Pulse Ox 97% on R/A; Weight 99.79 kg; ld1 Height 5 ft. 11 in. (180.34 cm); Pain 10/10; 18:58 BP 143 / 74; Pulse 88; Resp 20; Pulse Ox 100% on R/A; bh1 20:54 BP 136 / 78; Pulse 80; Resp 16; Pulse Ox 95% on R/A; kd3 22:24 BP 131 / 83; Pulse 103; Resp 19; Pulse Ox 95% on R/A; kd3 22:57 BP 127 / 82; Pulse 99; Resp 18; Pulse Ox 93% on R/A; kd3 18:11 Body Mass Index 30.68 (99.79 kg, 180.34 cm) ld1 MDM: 19:31 Patient medically screened. sp3 19:40 Data reviewed: vital signs, nurses notes. ED course: I explained to patient that it is sp3 Carlo evening and MRI is not available at this hour unless cord compression is an issue which I do not believe it is currently. We will treat patient's pain with IV Dilaudid, Toradol, Zofran. CT scan of the lumbosacral spine will also be ordered to better assess that area compared to plain films which were done yesterday. Those plain films did demonstrate significantly decreased intervertebral spaces. Goal will be to increase pain control to bridge patient to get to his surgeon for more definitive treatment.. 12/02 19:32 Order name: CT Lumbar Spine Wo Con; Complete Time: 21:04 sp3 12/02 19:32 Order name: IV Saline Lock; Complete Time: 20:37 sp3 12/02 19:32 Order name: Labs collected and sent; Complete Time: 20:38 sp3 Administered Medications: 20:37 Drug: Dilaudid (HYDROmorphone) 1 mg Route: IVP; Site: right antecubital; kd3 22:58 Follow up: Response: No adverse reaction kd3 20:37 Drug: Zofran (Ondansetron) 4 mg Route: IVP; Site: right antecubital; kd3 22:58 Follow up: Response: No adverse reaction kd3 20:37 Drug: Ketorolac 30 mg Route: IVP; Site: right antecubital; kd3 22:58 Follow up: Response: No adverse reaction kd3 22:23 Drug: Dilaudid (HYDROmorphone) 1 mg Route: IVP; Site: right antecubital; kd3 22:58 Follow up: Response: No adverse reaction kd3 Disposition Summary: 12/02/21 22:30 Discharge Ordered Location: Home sp3 Condition: Stable sp3 Diagnosis - Radiculopathy sp3 Followup: sp3 - With: Private Physician - When: Upon discharge from the Emergency Department - Reason: Recheck today's complaints, Continuance of care Discharge Instructions: - Discharge Summary Sheet sp3 - Lumbosacral Radiculopathy sp3 Forms: - Medication Reconciliation Form sp3 - Thank You Letter sp3 - Antibiotic Education sp3 - Prescription Opioid Use sp3 Signatures: Dispatcher [employer] EDMS Gabbi Palacios RN RN ld1 Michel Marcum MD MD sp3 Luann Dominguez, RN RN kd3
[2021-12-03 01:34] VITALS: TEMP 97.7
[2021-12-03 01:40] VITALS: BP 127/82; O2SAT 93
== END 2021-12-02 22:58 | disposition home or self-care (01) ==
LOC: ER 18:04
DX: M54.17 Radiculopathy, lumbosacral region (principal); E11.9 Type 2 diabetes mellitus without complications; I10 Essential (primary) hypertension
CPT/HCPCS: 72131; 96375; 96374; 99284; J1170 ×2; J2405

== ENCOUNTER 2021-12-04 15:03 | Emergency (ER) | payer OTHER ==
--- OUTSIDE RECORDS SUMMARY | 2021-12-04 15:07 | XMS REPORT | Continuity of Care Document ---
:1950 Author Organization [facility] t Address [address] [place] [address] Care Team Providers Name Role Phone Andry Mandujano MD Primary Care Physician Unavailable JOI JI Attending Clinician Unavailable Manny DANIELS Attending Clinician Unavailable Jeremiah INFORMATION ASSURANCE OFFICER, J Attending Clinician Ebrahim INFORMATION ASSURANCE OFFICER Attending Clinician Talya JI Attending Clinician Unavailable Lowell AMADOR, S Attending Clinician Garrison YEUNG P Attending Clinician JOI JI Admitting Clinician Unavailable Payers Payer Name Policy Type Policy Number Effective Date Expiration Date S tamy [facility] MED [id number] 2021 ADVANTAGE CHOICE 00:00:00 [facility] DUAL [id number] COMPLETE SNP [facility] MEDICARE PART A \\T\\ [id number] B - MEDICARE UNITED MEDICARE HMO [id number] 2020 00:00:00 [facility] [id number] 2020 00:00:00 Problems Condition Condition Condition Status [...] Date Date Clinician NO KNOWN Allergy Active [facility] NO KNOWN Drug Active Univers ALLERGIE Class ity of S [facility] Social History Social Habit Start Date Stop Date Quantity Comments Source History of Chews Tobacco University of tobacco use [facility] History [facility] of Alcohol Comment Medicine History [facility] [address] ge of Alcohol Std Medicine Drinks History [facility] of Alcohol Binge Medicine Exposure to 2021-11-17 2021-11-27 Not sure [facility] SARS-CoV-2 00:00:00 09:32:00 [facility] [place] (event) [place] Cigarette 2021-10-13 2021-10-13 [facility] of pack-years 00:00:00 00:00:00 Medicine Alcohol intake 2021-10-13 2021-10-13 Lifetime [facility] Col lege of 00:00:00 00:00:00 non-drinker Medicine (finding) History [facility] 2020-06-22 2020-06-22 1 [facility] ge of Alcohol Frequency 00:00:00 00:00:00 Medicin e Tobacco Comment 2015-08-03 2015-08-03 10 years; quit 20 Un iversity of 00:00:00 00:00:00 years ago [facility] Tobacco use and 2015-08-03 2015-08-03 Former smokeless Uni versity of exposure 00:00:00 00:00:00 tobacco user [facility] Sex Assigned At [birth year] Universit y of 00:00:00 00:00:00 [facility] Smoking Status Start Date Stop Date Source Never smoked tobacco [facility] Medications Ordered Filled Start Stop Current Ordering Indication Dosage Frequency Signature Comments Components Source Medication Medication Date Date Medication? Clinician (SIG) Name Name naproxen 2021- Yes [id number] 500mg Take 1 Univers 500 mg 7-17 07-23 tablet by ity of tablet 00:00: 04:59 mouth in [place] 00 :00 the Medical morning Branch and 1 tablet in the evening. Take with meals. Do all this for 5 days. cyclobenzap 2021- Yes [id number] 10mg Take 1 Univers rine 10 mg 7-17 07-23 tablet by ity of tablet 00:00: 04:59 mouth 3 [place] 00 :00 ([facility]) [facility] times [place] daily as needed for Muscle Spasms for up to 5 days. naproxen 2021- Yes [id number] 500mg Take 1 Univers 500 mg 7-17 07-23 tablet by ity of tablet 00:00: 04:59 mouth in [place] 00 :00 the [facility] morning Branch and 1 tablet in the evening. Take with meals. Do all this for 5 days. cyclobenzap 2021- Yes [id number] 10mg Take 1 Univers rine 10 mg 7-17 07-23 tablet by ity of tablet 00:00: 04:59 mouth 3 [place] 00 :00 (three) [facility] times [place] daily as needed for Muscle Spasms for up to 5 days. naproxen 2021- Yes [id number] 500mg Take 1 Univers 500 mg 7-17 07-23 tablet by ity of tablet 00:00: 04:59 mouth in [place] 00 :00 the Medical morning Branch and 1 tablet in the evening. Take with meals. Do all this for 5 days. cyclobenzap 2021- Yes [id number] 10mg Take 1 Univers rine 10 mg 7-17 07-23 tablet by ity of tablet 00:00: 04:59 mouth 3 [place] 00 :00 (three) Medical times Branch daily as needed for Muscle Spasms for up to 5 days. lidocaine 5 0 2021- Yes [id number] 1{patch Apply 1 Univers % (700 717 07-18 } Patch to ity of mg/patch) 00:00: 04:59 [place] patch [place] :00 once now Medical for 1 Branch dose. lidocaine 5 0 2021- Yes [id number] 1{patch Apply 1 Univers % (700 717 07-18 } Patch to ity of mg/patch) 00:00: 04:59 [place] patch 00 :00 once now Medical for 1 Branch dose. Tamsulosin Yes .4mg Take 0.4 [place] parveen HCl 0.4 MG 6-02 mg by [place] CAPS 11:56: mouth. of 12 Medicin e Insulin Yes 20U Inject 20 [place] NPH, 6-02 Units into [place] Human,, 11:56: the skin. of Isophane, 12 Medicin 100 UNIT/ML e SUPN metformin Yes 1000mg Take 1,000 Eran (GLUCOPHAGE 6-02 mg by [place] ) 1000 MG 11:56: mouth. of tablet 12 Medicin e levothyroxi Yes 50ug Take 50 [place] parveen ne 6-02 mcg by [place] (SYNTHROID) 11:56: mouth. of 50 MCG 12 Medicin tablet e HUMULIN R Yes [facility] 100 UNIT/ML 5-16 College injection 00:00: of 00 Medicin e triamcinolo 0 2021- No [id number] 16mg Univers ne 09-08 ity of acetonide 22:15: 21:10 [place] (KENALOG) 00 :00 Medical injection Branch 16 mg triamcinolo 2021- No [id number] 16mg 16 mg, [facility] ne 09-08 Intra-jose ity of acetonide 22:15: 21:10 jim [place] (KENALOG) 00 :00 ONCE, 1 Medical injection dose, On Branch 16 mg Areli 09/08/21 at 1715, Routine lisinopril 0 Yes [facility] (PRINIVIL, 3-30 [place] ZESTRIL) 40 00:00: of MG tablet 00 Medicin e pravastatin Yes [facility] (PRAVACHOL) 3-27 College 80 MG 00:00: of tablet 00 Medicin e glimepiride Yes [facility] (AMARYL) 4 3-18 College MG tablet 00:00: of 00 Medicin e oxybutynin Yes [id number] TAKE ONE [facility] (DITROPAN-X 2-28 TABLET BY Col donna Houser) 10 MG CR 00:00: MOUTH of tablet 00 DAILY Medicin e bromphenira 2020-05 Yes [id number] 5mL Take 5 mL Univers mine-pseudo 0-15 by mouth 4 it y of ephedrine-D 00:00: (four[place] M (BROMFED 00 times Medical DM) 2-30-10 daily as Bran ch mg/5 mL needed for syrup Congestion /Allergies . benzonatate 2020-05 Yes [id number] 200mg Take 2 Univers 100 mg 0-15 capsules ity of capsule 00:00: [place] 2 [place] 00 (two) Medical times Branch daily as needed for Cough. azelastine 2020-05 Yes [id number] 1{spray Use 1 Univers 137 mcg 0-15 } [place] in ity of (0.1 %) 00:00: each [place] nasal spray 00 nostril 2 Med ical (two) Branch times daily. Use in each nostril as directed fluticasone 2020-05 Yes [id number] 1{spray Use 1 Univers propionate 0-15 } [place] in ity o f 50 00:00: each [place] mcg/actuati 00 nostril Medic al on nasal daily. Branch spray codeine-gua 2020-05 Yes 5mL Take 5 mL U nivers ifenesin 0-15 by mouth ity of 10-100 mg/5 00:00: every 6 [place] as mL oral 00 (six) Medical solution hours as Branch needed for Cough. Indication s: cough bromphenira 2020-05 Yes [id number] 5mL Take 5 mL Univers mine-pseudo 0-15 by mouth 4 it y of ephedrine-D 00:00: (four[place] M (BROMFED 00 times Medical DM) 2-30-10 daily as Bran ch mg/5 mL needed for syrup Congestion /Allergies . benzonatate 2020-05 Yes [id number] 200mg Take 2 Univers 100 mg 0-15 capsules ity of capsule 00:00: [place] 2 [place] 00 (two) Medical times Branch daily as needed for Cough. azelastine 2020-05 Yes [id number] 1{spray Use 1 Univers 137 mcg 0-15 } [place] in ity of (0.1 %) 00:00: each [place] nasal spray 00 nostril 2 Med ical (two) Branch times daily. Use in each nostril as directed fluticasone 2020-05 Yes [id number] 1{spray Use 1 Univers propionate 0-15 } [place] in ity o f 50 00:00: each [place] mcg/actuati 00 nostril Medic al on nasal daily. Branch spray bromphenira 2020-05 Yes [id number] 5mL Take 5 mL Univers mine-pseudo 0-15 by mouth 4 it y of ephedrine-D 00:00: (four) [place] M (BROMFED 00 times Medical DM) 2-30-10 daily as Bran ch mg/5 mL needed for syrup Congestion /Allergies . benzonatate 2020-05 Yes [id number] 200mg Take 2 Univers 100 mg 0-15 capsules ity of capsule 00:00: by mouth 2 [place] 00 (two) Medical times Branch daily as needed for Cough. azelastine 2020-05 Yes [id number] 1{spray Use 1 Univers 137 mcg 0-15 } [place] in ity of (0.1 %) 00:00: each [place] nasal spray 00 nostril 2 Med ical (two) Branch times daily. Use in each nostril as directed fluticasone 2020-05 Yes [id number] 1{spray Use 1 Univers propionate 0-15 } [place] in ity o f 50 00:00: each [place] mcg/actuati 00 nostril Medic al on nasal daily. Branch spray bromphenira 2020-05 Yes [id number] 5mL Take 5 mL Univers mine-pseudo 0-15 by mouth 4 it y of ephedrine-D 00:00: (four) [place] M (BROMFED 00 times Medical DM) 2-30-10 daily as Bran ch mg/5 mL needed for syrup Congestion /Allergies . benzonatate 2020-05 Yes [id number] 200mg Take 2 Univers 100 mg 0-15 capsules ity of capsule 00:00: by mouth 2 [place] 00 (two) Medical times Branch daily as needed for Cough. azelastine 2020-05 Yes [id number] 1{spray Use 1 Univers 137 mcg 0-15 } [place] in ity of (0.1 %) 00:00: each [place] nasal spray 00 nostril 2 Med ical (two) Branch times daily. Use in each nostril as directed fluticasone 2020-05 Yes [id number] 1{spray Use 1 Univers propionate 0-15 } [place] in ity o f 50 00:00: each [...] for Cough. Indication s: cough tramadol Yes [id number] 1{tbl} Take 1 [place] (ULTRAM) 50 5-27 Tablet by Col lege MG tablet 00:00: mouth of 00 every 6 Medicin hours as e needed. sulfamethox Yes [id number] 1{tbl} Take 1 [facility] azole-trime 5-27 Tablet by Col lege thoprim 00:00: mouth two of (BACTRIM 00 times Medicin DS) 800-160 daily. e MG per tablet phenazopyri Yes Take by [facility] dine 5-27 mouth [place] (PYRIDIUM) 00:00: every 8 of 200 MG 00 hours PRN. Medicin tablet e docusate Yes [id number] 100mg Take 1 [place] sodium 5-27 capsule by [place] (COLACE) 00:00: mouth two of 100 MG 00 times Medicin capsule daily. e tramadol Yes [id number] 1{tbl} Take 1 [place] (ULTRAM) 50 5-27 Tablet by Col lege MG tablet 00:00: mouth of 00 every 6 Medicin hours as e needed. sulfamethox Yes [id number] 1{tbl} Take 1 [facility] azole-trime 5-27 Tablet by Col lege thoprim 00:00: mouth two of (BACTRIM 00 times Medicin DS) 800-160 daily. e MG per tablet phenazopyri Yes [id number] Take by [facility] dine 5-27 mouth [place] (PYRIDIUM) 00:00: every 8 of 200 MG 00 hours PRN. Medicin tablet e docusate Yes [id number] 100mg Take 1 [place] sodium 5-27 capsule by [place] (COLACE) 00:00: mouth two of 100 MG 00 times Medicin capsule daily. e oxybutynin Yes [id number] 10mg Take 1 [facility] (DITROPAN-X 2-12 Tablet by Col lege L) 10 MG CR 00:00: mouth of tablet 00 daily. Medicin e methylPREDN 2019-05 Yes [id number] 84mg Take 21 Univers ISolone 1-19 [id number] tablets by ity o f (MEDROL, 00:00: mouth [place] RUY,) 4 mg 00 SEE-INSTRU Med ical tablets CTIONS. Branch follow package directions meloxicam 2019-05 Yes [id number] 7.5mg Take 1 Univers 7.5 mg 1-19 [id number] tablet by ity of tablet 00:00: mouth [place] 00 daily. Medical Branch methylPREDN 2019-05 Yes [id number] 84mg Take 21 Univers ISolone 1-19 [id number] tablets by ity o f (MEDROL, 00:00: mouth [place] RUY,) 4 mg 00 SEE-INSTRU Med ical tablets CTIONS. Branch follow package directions methylPREDN 2019-05 Yes [id number] 84mg Take 21 Univers ISolone 1-19 [id number] tablets by ity o f (MEDROL, 00:00: mouth [place] RUY,) 4 mg 00 SEE-INSTRU Med ical tablets CTIONS. Branch follow package directions methylPREDN 2019-05 Yes [id number] 84mg Take 21 Univers ISolone 1-19 [id number] tablets by ity o f (MEDROL, 00:00: mouth [place] RUY,) 4 mg 00 SEE-INSTRU Med ical tablets CTIONS. Branch follow package directions meloxicam 2019-05- No [id number] 7.5mg Take 1 Univers 7.5 mg 06-01 [id number] tablet by ity of tablet 00:00: 00:00 mouth [place] 00 :00 daily. Medical Branch atorvastati 2017-0 Yes [id number] 20mg Take 1 Univers n (LIPITOR) 5-14 tablet by ity of 20 mg 00:00: mouth at [place] tablet 00 bedtime. Medical Branch atorvastati 0 Yes [id number] 20mg Take 1 Univers n (LIPITOR) 5-14 tablet by ity of 20 mg 00:00: mouth at [place] tablet 00 bedtime. Medical Branch atorvastati 0 Yes [id number] 20mg Take 1 Univers n (LIPITOR) 5-14 tablet by ity of 20 mg 00:00: mouth at [place] tablet 00 bedtime. Medical Branch atorvastati 0 Yes [id number] 20mg Take 1 Univers n (LIPITOR) 5-14 tablet by ity of 20 mg 00:00: mouth at [place] tablet 00 bedtime. Medical Branch lisinopril 2017-0 Yes [id number] 40mg Take 1 U nivers 40 mg 5-08 tablet by ity of tablet 00:00: mouth [place] 00 daily. Medical Branch lisinopril 2017-0 Yes [id number] 40mg Take 1 U nivers 40 mg 5-08 tablet by ity of tablet 00:00: mouth [place] 00 daily. Medical Branch lisinopril 2017-0 Yes [id number] 40mg Take 1 U nivers 40 mg 5-08 tablet by ity of tablet 00:00: mouth [place] 00 daily. Medical Branch lisinopril 2017-0 Yes [id number] 40mg Take 1 U nivers 40 mg 5-08 tablet by ity of tablet 00:00: mouth [place] 00 daily. Medical Branch acetaminoph 2016-05 Yes [id number] 2 - 1 Univers en-codeine 2-31 tab Every ity of 300-30 mg 00:00: 4hrs as [place] tablet 00 needed for Medical pain or Branch cough requiring narcotic acetaminoph 2016-05 Yes [id number] 2 - Univers en-codeine 2-31 tab Every ity of 300-30 mg 00:00: 4hrs as [place] tablet 00 needed for Medical pain or Branch cough requiring narcotic acetaminoph 2016-05 Yes [id number] 05/15 Univers en-codeine 2-31 tab Every ity of 300-30 mg 00:00: 4hrs as [place] tablet 00 needed for Medical pain or Branch cough requiring narcotic acetaminoph 2016-05 Yes [id number] 05/15 Univers en-codeine 2-31 tab Every ity of 300-30 mg 00:00: 4hrs as [place] tablet 00 needed for Medical pain or Branch cough requiring narcotic AMLODIPINE 2016-05 Yes [id number] TAKE ONE Univers 10 mg 2-22 TABLET BY ity of tablet 00:00: MOUTH ONCE DAILY Medical Branch AMLODIPINE 2016-05 Yes [id number] TAKE ONE Univers 10 mg 2-22 TABLET BY ity of tablet 00:00: MOUTH ONCE DAILY Medical Branch AMLODIPINE 2016-05 Yes [id number] TAKE ONE Univers 10 mg 2-22 TABLET BY ity of tablet 00:00: MOUTH ONCE DAILY Medical Branch AMLODIPINE 2016-05 Yes [id number] TAKE ONE Univers 10 mg 2-22 TABLET BY ity of tablet 00:00: MOUTH ONCE DAILY Medical Branch insulin Yes [id number] Take 22 Un aditya 70/30 100 8-16 units ity of unit/mL 00:00: before (30) 00 breakfast Medical injection and 20 Branch units before dinner- Take 30 minutes before meals twice daily insulin Yes [id number] Take 22 Un aditya 70/30 100 8-16 units ity of unit/mL 00:00: before (30) 00 breakfast Medical injection and 20 Branch units before dinner- Take 30 minutes before meals twice daily insulin Yes [id number] Take 22 Un aditya 70/30 100 8-16 units ity of unit/mL 00:00: before (-30) 00 breakfast Medical injection and 20 Branch units before dinner- Take 30 minutes before meals twice daily insulin Yes [id number] Take 22 Un aditya 70/30 100 8-16 units ity of unit/mL 00:00: before (30) 00 breakfast Medical injection and 20 Branch units before dinner- Take 30 minutes before meals twice daily metformin Yes [id number] 1000mg Take 2 Univers ER 500 mg 5-10 tablets by ity of 24 hr 00:00: mouth 2 [place] tablet 00 (two) Medical times Branch daily with meals. glimepiride Yes [id number] 4mg Take 1 Univers (AMARYL) 4 5-10 tablet by ity of mg tablet 00:00: mouth 2 [place] 00 (two) Medical times Branch daily. metformin Yes [id number] 1000mg Take 2 Univers ER 500 mg 5-10 tablets by ity of 24 hr 00:00: mouth 2 [place] tablet 00 (two) Medical times Branch daily with meals. glimepiride Yes [id number] 4mg Take 1 Univers (AMARYL) 4 5-10 tablet by ity of mg tablet 00:00: mouth 2 [place] (two) Medical times Branch daily. metformin Yes [id number] 1000mg Take 2 Univers ER 500 mg 5-10 tablets by ity of 24 hr 00:00: mouth 2 [place] tablet 00 (two) Medical times Branch daily with meals. glimepiride Yes [id number] 4mg Take 1 Univers (AMARYL) 4 5-10 tablet by ity of mg tablet 00:00: mouth 2 (two) Medical times Branch daily. metformin Yes [id number] 1000mg Take 2 Univers ER 500 mg 5-10 tablets by ity of 24 hr 00:00: mouth 2 [place] tablet 00 (two) Medical times Branch daily with meals. glimepiride Yes [id number] 4mg Take 1 Univers (AMARYL) 4 5-10 [...] DAILY WITH Branch MEALS mupirocin 2 Yes [id number] Apply to Univers % ointment 08-05 [id number] area(s) 3 it y of 00:00: (three) [place] 00 times Medical daily. Branch mupirocin 2 Yes [id number] Apply to Univers % ointment 3-25 [id number] area(s) 3 it y of 00:00: (three) [place] 00 times Medical daily. Branch mupirocin 2 Yes [id number] Apply to Univers % ointment 3-25 [id number] area(s) 3 it y of 00:00: (three) [place] 00 times Medical daily. Branch mupirocin 2 Yes [id number] Apply to Univers % ointment 3-25 [id number] area(s) 3 it y of 00:00: (three) [place] 00 times Medical daily. Branch insulin Yes [id number] Use twice Univers syringe,saf 4-04 daily ity of etyneedle 00:00: [place] ([facility] Medical INSULIN Branch SAFETY SYRNG) 1 mL 29 gauge x 1/2" Syrg insulin Yes [id number] Use twice Univers syringe,saf 4-04 daily ity of etyneedle 00:00: [place] ([facility] Medical INSULIN Branch SAFETY SYRNG) 1 mL 29 gauge x 1/2" Syrg insulin Yes [id number] Use twice Univers syringe,saf 4-04 daily ity of etyneedle 00:00: [place] ([facility] Medical INSULIN Branch SAFETY SYRNG) 1 mL 29 gauge x 1/2" Syrg insulin Yes [id number] Use twice Univers syringe,saf 4-04 daily ity of etyneedle 00:00: [place] ([facility] Medical INSULIN Branch SAFETY SYRNG) 1 mL 29 gauge x 1/2" Syrg Vital Signs Vital Name Observation Time Observation Value Comments Source HEIGHT 2020-10-07 08:43:00 180.3 cm WEIGHT 2020-10-07 08:43:00 107.14 kg HEIGHT 2020-09-17 14:46:00 180.3 cm WEIGHT 2020-09-17 14:46:00 102.059 kg Systolic blood 2021-11-27 14:34:00 172 mm[Hg] Univer sity of pressure [facility] Diastolic blood 2021-11-27 14:34:00 76 mm[Hg] Unive rsity of pressure [facility] Heart rate 2021-11-27 14:33:00 74 /min Universi ty of [facility] Body temperature 2021-11-27 14:33:00 36.11 Joelle [facility] Respiratory rate 2021-11-27 14:33:00 16 /min [facility] Body height 2021-11-27 14:33:00 180.3 cm Universi ty of [facility] Body weight 2021-11-27 14:33:00 103.783 kg Universi ty of [facility] BMI 2021-11-27 14:33:00 31.91 kg/m2 Universi ty of [facility] Oxygen saturation in 2021-11-27 14:33:00 96 /min [facility] Arterial blood by [facility] Pulse oximetry Branch Systolic blood 2021-10-13 16:09:00 150 mm[Hg] [facility] pressure Medicine Diastolic blood 2021-10-13 16:09:00 76 mm[Hg] [facility] pressure Medicine Heart rate 2021-10-13 16:09:00 73 /min [facility] Systolic blood 2021-09-08 21:08:00 173 mm[Hg] Univer sity of [facility] Diastolic blood 2021-09-08 21:08:00 82 mm[Hg] [facility] of [facility] Heart rate 2021-09-08 21:08:00 65 /min Universi ty of [facility] Body height 2021-09-08 21:00:00 180.3 cm Universi ty of [facility] Body weight 2021-09-08 21:00:00 104.327 kg Universi ty of [facility] BMI 2021-09-08 21:00:00 32.08 kg/m2 Universi ty of [facility] HEIGHT 2020-10-07 08:43:00 180.3 cm WEIGHT 2020-10-07 08:43:00 107.14 kg HEIGHT 2020-09-17 14:46:00 180.3 cm WEIGHT 2020-09-17 14:46:00 102.059 kg Procedures Procedure Date / Time Performed Performing Clinician Sourc e XR LUMBAR SPINE 3 VW 2021-11-27 15:25:00 Ciaran Daniels [facility] KERRY,POST-VOID 2021-10-13 00:00:00 [facility],NON-IMG Medicine KERRY,POST-VOID 2021-10-13 00:00:00 Moriah Ji [facility],NON-IMG Medicine POCT URINALYSIS 2021-10-13 00:00:00 [facility] of DIPSTICK Medicine Plan of Care Planned Activity Planned Date Details Comments Source Future Scheduled 2021-10-13 Screening for [facility] Col lege of Test 11:18:30 malignant neoplasm of Medici ne colon (procedure) [code = 451546345] Future Scheduled 2021-10-13 COVID-19 Vaccine (#1) [facility] Test 11:18:30 [code = COVID-19 Medicine Vaccine (#1)] Future Scheduled 2021-10-13 TETANUS SHOT (ADULT) [facility] Test 11:18:30 [code = TETANUS SHOT Medicin e (ADULT)] Future Scheduled 2021-10-13 BMI FOLLOW UP PLAN [facility] Test 11:18:30 [code = BMI FOLLOW UP Medici ne PLAN] Future Scheduled 2021-10-13 Hepatitis C screening [facility] Test 11:18:30 (procedure) [code = Medicine [id number]] Future Scheduled 2021-10-13 ZOSTER VACCINE (1 of [facility] of Test 11:18:30 2) [code = ZOSTER Medicine VACCINE (1 of 2)] Future Scheduled 2021-10-13 FALL SCREEN [code = [facility] of Test 11:18:30 FALL SCREEN] Medicine Future Scheduled 2021-10-13 Pneumococcal 65+ (1 - Ba [facility] of Test 11:18:30 PCV) [code = Medicine Pneumococcal 65+ (1 - PCV)] Future Scheduled 2021-10-13 MEDICARE AWV (Initial) [facility] of Test 11:18:30 [code = MEDICARE AWV Medicin e (Initial)] Future Scheduled 2021-10-13 FLU VACCINE > 6 MONTHS B [facility] of Test 11:18:30 [code = FLU VACCINE > Medici ne 6 MONTHS] Future Scheduled 2020-11-12 Screening for [facility] Col lege of Test 11:35:55 malignant neoplasm of Medici ne colon (procedure) [code = [id number]] Future Scheduled 2020-11-12 COVID-19 Vaccine (1) [facility] of Test 11:35:55 [code = COVID-19 Medicine Vaccine (1)] Future Scheduled 2020-11-12 TETANUS SHOT (ADULT) [facility] of Test 11:35:55 [code = TETANUS SHOT Medicin e (ADULT)] Future Scheduled 2020-11-12 BMI FOLLOW UP PLAN [facility] of Test 11:35:55 [code = BMI FOLLOW UP Medici ne PLAN] Future Scheduled 2020-11-12 Hepatitis C screening [facility] Test 11:35:55 (procedure) [code = Medicine [id number]] Future Scheduled 2020-11-12 ZOSTER VACCINE (1 of [facility] of Test 11:35:55 2) [code = ZOSTER Medicine VACCINE (1 of 2)] Future Scheduled 2020-11-12 FALL SCREEN [code = [facility] of Test 11:35:55 FALL SCREEN] Medicine Future Scheduled 2020-11-12 PNEUMOVAX >=65 [facility] of Test 11:35:55 (PPSV23) [code = Medicine PNEUMOVAX >=65 (PPSV23)] Future Scheduled 2020-11-12 MEDICARE IPPE (WELCOME B [facility] of Test 11:35:55 TO MEDICARE) [code = Medicin e MEDICARE IPPE (WELCOME TO MEDICARE)] Future Scheduled 2020-11-12 FLU VACCINE > 6 MONTHS B [facility] of Test 11:35:55 [code = FLU VACCINE > Medici ne 6 MONTHS] Encounters Start End Encounter Admission Attending Care Care Encounter Source Date/Time Date/Time Type Type Clinicians Facility Department ID 2021-02-19 Outpatient GARRISON [facility] Surgery [id number] [facility] 15:46:05 MORIAH 2021-11-27 2021-11-27 Outpatient R [facility] [id number] Univers 10:01:43 23:59:00 CIARAN roberts [facility] 2021-11-27 2021-11-27 [facility] [id number] Univers 10:01:43 23:59:00 Encounter Ciaran Bryant [facility] [id number] Brayan [id number] Lance as SOCO?BLEA [id number] Me jordan [facility] [address] [facility] OFFICE [facility] 2021-11-27 2021-11-27 Urgent JeremiahCiaran snell Manny [facility] [id number] Univers 09:40:00 10:09:43 Care Tuyet Devine [facility] [id number] ity of [place] [facility] [id number] Lance as SOCO?BLEA [id number] Me jordan EAST 370 [facility] OFFICE [facility] 2021-11-27 2021-11-27 Outpatient R JEREMIAH [facility] [id number] Univers 10:05:00 10:05:00 CIARAN [id number] ity o f [facility] 2021-11-27 2021-11-27 [facility] [id number] Univers 00:00:00 00:00:[address] [facility] [id number] ity of [place] [id number] Lance as SOCO?BLEA [id number] Ct jordan EAST 370 [facility] OFFICE [facility] 2021-10-13 2021-10-13 Office ALYCE JI [id number] [facility] 10:36:55 11:18:44 Visit CHRISTCONSTANTINO AMBULATOR [id number] College Y 0.2.7.2.686 of [id number] [facility] 300 e 2021-09-08 2021-09-08 Office [facility] [id number] Univers 16:00:00 16:15:00 Visit [facility] [id number] it [facility] [id number] Lance as SOCO?BLEA [id number] Me jordan EAST 198 [facility] OFFICE [facility] 2020-12-23 2020-12-23 Outpatient ALYCE JI [id number] [facility] 10:33:38 11:13:46 [facility] 2020-11-12 2020-11-12 Office ALYCE Ji [id number] [facility] 11:58:41 12:08:41 Visit Christelaineer AMBULATOR [id number] College P Y [id number] Medi mason 300 e 2020-10-04 2020-10-04 Outpatient [facility] [id number] [facility] 00:00:00 00:00:00 2020-10-04 2020-10-04 Outpatient [facility] [id number] [facility] 00:00:00 00:00:00 2020-10-04 2020-10-04 Outpatient [facility] [id number] [facility] 00:00:00 00:00:00 2020-09-17 2020-09-17 Outpatient [facility] [id number] [facility] 00:00:00 00:00:00 Results Test Description Test Time Test Comments Results Result Comments Source KERRY,POST-VOID RES,US,NON-IMG 2021-10-13 00:00:00 Test Item Value Reference Range Interpretation Comme nts PVR (test code = 6116) [facility] [id number] 09:04:00 Test Item Value Reference Range Interpretation Comments POC-GLUCOSE METER 163 mg/dL 70-110 H : TESTED A T [facility] [address] (BEAKER) (test code = ELTON [place], 1538) 52698: [employer]isher [employer]/Techni karine ID = [id number] for PRIMITIVO AGUIRRE (Teresa)DEBORAH URINE [id number] 10:47:00 Test Item Value Reference Range Interpretation Comments CULTURE (BEAKER) (test <10,000 col/mL skin code = 1095) yesy SARS-COV2/RT-PCR ([facility])2020-10-04 22:28:00 Test Item Value Reference Range Interpretation Comments SARS-COV2/RT-PCR (test Negative Not Detected, Negative, code = 6144125) See external report for linked test SARS-COV-[address] [facility] (test code = 3399127) Negative result for this test determines that [...] the Lawrence SARS-CoV-2 assay.Fact Sheet for Healthcare Providers:https://www.Buzzoola.lawrence/genesis/ ZX_NZXU-HwR-5_YAF_Lpzw_Wykya_85-121613.pdfFact Sheet for Healthcare Patients:https://www.Buzzoola.ab viktor/genesis/DF_AKZB-FrW-0_Sauipta_Ggqi_Siywy_VB_08-119144G1.pdfPerforming Laboratory:[facility], [place] [address]DEI AND CREATININE [id number] 10:33:00 Test Item Value Reference Range Interpretation Comments BLOOD UREA NITROGEN 15 mg/dL 7-21 (BEAKER) (test code = 354) CREATININE (BEAKER) 0.97 mg/dL 0.57-1.25 Specimen slightly (test code = 358) hemolyzed BUN/CREAT RATIO 15 For a normal (BEAKER) (test code individu al on a = 0986014294) normal diet, t he reference inter man for the mass ra mlaini ranges between 12:1 and 20:1 (BUN i n mg/dL/creatinin e in mg/dL) EGFR (BEAKER) (test 77 mL/min/1.73 ESTIMA ART GFR IS code = 1092) sq m NOT ACCURATE CREATININE CLEARANCE IN PREDICTING GLOMERULAR FILTRATION RATE . ESTIMATED GFR I S NOT APPLICABLE FOR DIALYSIS PATIEN TS. BASIC METABOLIC [id number] 10:33:00 Test Item Value Reference Range Interpretation [...] S NOT APPLICABLE FOR DIALYSIS PATIEN TS. [employer] ID - CARLA FURINALYSIS W/ [id number] 10:30:00 Test Item Value Reference Range Interpretation [...] (test code Urine, Clean Catch = 2795) [employer] ID - [auto][employer] ID - techCBC W/PLT COUNT & AUTO [...]
[2021-12-04] MEDS ORDERED: MORPHINE 4 MG/ML SYR ONE (16:13)
[2021-12-04] MEDS ORDERED: LIDOCAINE 4% PATCH ONE (16:13)
[2021-12-04] MEDS ORDERED: ONDANSETRON 4 MG (ODT) TAB ONE (16:13)
[2021-12-04] MEDS ORDERED: KETOROLAC 30 MG/ML INJ ONE (16:13)
[2021-12-04] MEDS ORDERED: methocarbamoL 500 MG TAB ONE (16:19)
[2021-12-04] MEDS ORDERED: FENTANYL CITR 100 MCG/2 ML ONE (16:21)
--- NOTE | 2021-12-04 17:08 | EDPHYS ---
Physician Documentation [facility] Name: Sandip Mon Age: 71 yrs Sex: Male : 1950 Arrival Date: 12/04/2021 Time: 15:04 Bed 20 Private MD: Kyler Mandujano ED Physician Meryl Valle HPI: 12/04 15:25 This 71 yrs old Male presents to ER via Wheelchair with complaints of Back Pain. sd2 15:25 71 yo M presents with CC of L sided low back pain radiating down his LLE. He states sd2 symptoms started 1 week ago and he has been seen twice previously at our ER for this. 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 Denies any fever, saddle anesthesia, bowel or bladder incontinence or retention or significant numbness. He reports some occasional numbness to his anterior L hanson only. Pt is able to ambulate although painful.. Historical: - Allergies: 15:21 No Known Allergies; ap3 - Home Meds: 15:21 amlodipine 2.5 mg tab 1 tab once daily [Active]; ap3 - PMHx: 15:21 diabetes mellitus; Hypertensive disorder; ap3 - PSHx: 15:21 Appendectomy; back surgery; Prostate surgery; ap3 - Immunization history:: Adult Immunizations unknown. - Social history:: Smoking status: unknown. ROS: 15:25 Constitutional: Negative for fever, chills, and weight loss, Eyes: Negative for injury, sd2 pain, redness, and discharge, Cardiovascular: Negative for chest pain, palpitations, and edema, Respiratory: Negative for shortness of breath, cough, wheezing. Abdomen/GI: Negative for abdominal pain, nausea, vomiting, diarrhea. 15:25 : Negative for injury, bleeding, discharge, and swelling, MS/Extremity: Negative for injury and deformity, Skin: Negative for injury, rash, and discoloration, Neuro: Negative for headache, numbness and tingling. 15:25 Back: Positive for pain at rest, pain with movement, radiated pain, Negative for injury or acute deformity. Exam: 15:25 Constitutional: This is a well developed, well nourished patient who is awake, alert, sd2 and in no acute distress. Head/Face: Normocephalic, atraumatic. Eyes: EOMI, normal conjunctiva bilaterally Chest/axilla: Normal chest wall appearance and motion. Nontender with no deformity. Cardiovascular: Regular rate and rhythm with a normal S1 and S2. No gallops, murmurs, or rubs. 2+ distal pulses. Respiratory: Lungs have equal breath sounds bilaterally, clear to auscultation and percussion. No rales, rhonchi or wheezes noted. No increased work of breathing, no retractions or nasal flaring. Abdomen/GI: Soft, non-tender, with normal bowel sounds. No guarding or rebound. No evidence of tenderness throughout. Back: Midline lumbar spinal tenderness. No stepoffs or deformities. L paraspinal lumbar TTP. 5/5 strength to BLEs. Sensation intact. Skin: Warm, dry with normal turgor. Normal color with no rashes, no lesions, and no evidence of cellulitis. MS/ Extremity: Pulses equal, no cyanosis. Neurovascular intact. Full, normal range of motion. Ambulatory without difficulty. Psych: Awake, alert, with orientation to person, place and time. Behavior, mood, and affect are within normal limits. Vital Signs: 15:19 Pulse 85; Resp 17; Temp 98.2; Pulse Ox 98% ; Weight 99.79 kg; Height 5 ft. 11 in. ap3 (180.34 cm); 15:28 BP 142 / 71; ap3 17:30 BP 135 / 69; Pulse 79; Resp 16; Temp 98.3; Pulse Ox 98% ; bp 15:19 Body Mass Index 30.68 (99.79 kg, 180.34 cm) ap3 MDM: 15:24 Patient medically screened. sd2 15:25 Differential diagnosis: MSK, cauda equina, epidural abscess, spinal stenosis, spasm, sd2 UTI among others. Data reviewed: vital signs, nurses notes. 17:04 Data reviewed: old medical records, radiologic studies, CT scan, plain films. sd2 Counseling: I had a detailed discussion with the patient and/or guardian regarding: the historical points, exam findings, and any diagnostic results supporting the discharge/admit diagnosis, the need for outpatient follow up, to return to the emergency department if symptoms worsen or persist or if there are any questions or concerns that arise at home. Medical screen evaluation completed. EMTALA emergency medical condition absent. Medication response: morphine markedly relieved the patient's pain. Symptoms have improved. ED course: Prior imaging and records reviewed. No significant concerning findings on imaging previously. Pt is able to ambulate and is without saddle anesthesia or bowel or bladder changes with good strength on exam. Doubt cauda equina at this time. Pt will likely need MRI but does not meet criteria for emergent MRI at this time. His pain is much improved after treatment in ED and he will try to follow up with his surgeon, Dr. Bermudez this Sunday as scheduled or earlier if it becomes available. He verbalizes understanding of discharge plan and strict return precautions.. Administered Medications: 16:00 Drug: Ketorolac 60 mg Route: IM; Site: left gluteus; bp 17:37 Follow up: Response: Pain is decreased bp 16:00 Drug: Lidoderm Patch 5 % (700 mg/patch) 1 patches Route: Topical; Site: affected area; bp 16:00 Drug: Ondansetron 4 mg Route: PO; bp 17:37 Follow up: Response: Pain is decreased bp 16:00 Drug: morphine 8 mg Route: IM; Site: left gluteus; bp 17:38 Follow up: Response: Pain is decreased bp 16:00 Drug: Robaxin (methocarbamol) 1000 mg Route: PO; bp 17:38 Follow up: Response: Pain is decreased bp 16:39 CANCELLED (Other Intervention Used): morphine 6 mg IM once bp 16:39 CANCELLED (Other Intervention Used): tiZANidine 4 mg PO once bp Disposition Summary: 12/04/21 17:08 Discharge Ordered Location: Home sd2 Problem: an ongoing problem sd2 Symptoms: have improved sd2 Condition: Stable sd2 Diagnosis - Acute left sided radicular low back pain sd2 Followup: sd2 - With: Dillon Albright MD - When: 2 - 3 days - Reason: Recheck today's complaints, Continuance of care, Re-evaluation by your physician Followup: sd2 - With: Emergency Department - When: As needed - Reason: Discharge Instructions: - Discharge Summary Sheet sd2 - Acute Back Pain, Adult sd2 - Chronic Back Pain sd2 Forms: - Medication Reconciliation Form sd2 - Thank You Letter sd2 - Antibiotic Education sd2 - Prescription Opioid Use sd2 Prescriptions: - MORPHINE IR 15 mg oral tablet - take 1 tablet by ORAL route every 6 hours Take as needed for severe pain only sd2 every 6 hours.; 12 tablet; Refills: 0, Product Selection Permitted - methocarbamol 750 mg Oral Tablet - take 1 tablet by ORAL route 3 times per day Take as needed for muscle spasm up sd2 to 3 times daily; 15 tablet; Refills: 0, Product Selection Permitted Signatures: Tyler Scott RN RN bp Gracie Eldridge RN RN ap3 Meryl Valle MD MD sd2 Corrections: (The following items were deleted from the chart) 16:39 15:38 morphine 6 mg IM once ordered. sd2 bp 16:39 15:38 tiZANidine 4 mg PO once ordered. sd2 bp 16:39 16:29 tiZANidine 4 mg PO once given. bp bp 16:39 16:29 morphine 6 mg IM once given. bp bp 16:39 16:39 tiZANidine 4 mg PO once ordered. bp bp 16:39 16:39 morphine 6 mg IM once ordered. bp bp
--- NOTE | 2021-12-04 17:08 | ER ---
Nurse's Notes [facility] Name: Sandip Mon Age: 71 yrs Sex: Male : 1950 Arrival Date: 12/04/2021 Time: 15:04 Bed 20 Private MD: Kyler Mandujano Diagnosis: Acute left sided radicular low back pain Presentation: 12/04 15:19 Chief complaint: Patient states: Left low back pain, radiates to left leg, seen here ap3 morning and Sunday night for same problem, pain continues. Denies incontinence. Coronavirus screen: At this time, the client does not indicate any symptoms associated with coronavirus-19. Ebola Screen: No symptoms or risks identified at this time. Initial Sepsis Screen: Does the patient meet any 2 criteria? No. Patient's initial sepsis screen is negative. Does the patient have a suspected source of infection? No. Patient's initial sepsis screen is negative. Risk Assessment: Do you want to hurt yourself or someone else? Patient reports no desire to harm self or others. 15:19 Method Of Arrival: Wheelchair ap3 15:19 Acuity: ARNULFO 4 ap3 Triage Assessment: 15:21 General: Appears in no apparent distress. uncomfortable, Behavior is calm, cooperative, ap3 appropriate for age. Pain: Complains of pain in left low back Pain radiates to left leg. Musculoskeletal: reports significant pain with ambulation. Historical: - Allergies: 15:21 No Known Allergies; ap3 - Home Meds: 15:21 amlodipine 2.5 mg tab 1 tab once daily [Active]; ap3 - PMHx: 15:21 diabetes mellitus; Hypertensive disorder; ap3 - PSHx: 15:21 Appendectomy; back surgery; Prostate surgery; ap3 - Immunization history:: Adult Immunizations unknown. - Social history:: Smoking status: unknown. Screenin:30 Abuse screen: Denies threats or abuse. Denies injuries from another. Nutritional bp screening: No deficits noted. Tuberculosis screening: No symptoms or risk factors identified. Fall Risk None identified. Assessment: 15:22 Reassessment: Dr. Valle in triage assessing pt. ap3 16:30 Neuro: No deficits noted. bp 17:35 Reassessment: PT D/C HOME AMBULATORY. bp Vital Signs: 15:19 Pulse 85; Resp 17; Temp 98.2; Pulse Ox 98% ; Weight 99.79 kg; Height 5 ft. 11 in. ap3 (180.34 cm); 15:28 BP 142 / 71; ap3 17:30 BP 135 / 69; Pulse 79; Resp 16; Temp 98.3; Pulse Ox 98% ; bp 15:19 Body Mass Index 30.68 (99.79 kg, 180.34 cm) ap3 ED Course: 15:04 Patient arrived in ED. mr 15:04 Kyler Mandujano is Private Physician. mr 15:12 Meryl Valle is Attending Physician. sd2 15:21 Triage completed. ap3 15:21 Arm band placed on right wrist. ap3 15:46 Tyler Scott, JIMBO is Primary Nurse. bp 17:07 Dillon Albright MD is Referral Physician. sd2 17:30 Patient has correct armband on for positive identification. Bed in low position. Call bp light in reach. Side rails up X2. 17:30 No provider procedures requiring assistance completed. Patient did not have IV access bp during this emergency room visit. Administered Medications: 16:00 Drug: Ketorolac 60 mg Route: IM; Site: left gluteus; bp 17:37 Follow up: Response: Pain is decreased bp 16:00 Drug: Lidoderm Patch 5 % (700 mg/patch) 1 patches Route: Topical; Site: affected area; bp 16:00 Drug: Ondansetron 4 mg Route: PO; bp 17:37 Follow up: Response: Pain is decreased bp 16:00 Drug: morphine 8 mg Route: IM; Site: left gluteus; bp 17:38 Follow up: Response: Pain is decreased bp 16:00 Drug: Robaxin (methocarbamol) 1000 mg Route: PO; bp 17:38 Follow up: Response: Pain is decreased bp 16:39 CANCELLED (Other Intervention Used): morphine 6 mg IM once bp 16:39 CANCELLED (Other Intervention Used): tiZANidine 4 mg PO once bp Medication: 16:30 VIS not applicable for this client. bp Outcome: 17:08 Discharge ordered by . sd2 17:30 Discharged to home ambulatory. bp 17:30 Condition: stable 17:30 Discharge instructions given to patient, Instructed on discharge instructions, follow up and referral plans. medication usage, Demonstrated understanding of instructions, follow-up care, medications, Prescriptions given X 2. 17:38 Patient left the ED. bp Signatures: Castillo, Winnie stewart Tyler Scott, RN RN bp Gracie Eldridge RN RN ap3 Leonard, MD ANJANA Sheth sd2 Corrections: (The following items were deleted from the chart) 16:39 16:00 tiZANidine 4 mg PO bp bp 16:39 16:00 morphine 6 mg IM in left gluteus bp bp 17:36 16:30 BP 135 / 69; Pulse 79bpm; Resp 16bpm; Pulse Ox 98%; Temp 98.3F; bp bp
[2021-12-04 17:43] VITALS: O2SAT 98
[2021-12-04 17:47] VITALS: BP 135/69; TEMP 98.3
== END 2021-12-04 17:38 | disposition home or self-care (01) ==
LOC: ER 15:03
DX: M54.16 Radiculopathy, lumbar region (principal); E11.9 Type 2 diabetes mellitus without complications; I10 Essential (primary) hypertension
CPT/HCPCS: 96372; 99283; Q0162; J3010; J2001

== ENCOUNTER 2021-12-19 21:42 | Emergency (ER) | payer OTHER ==
--- OUTSIDE RECORDS SUMMARY | 2021-12-19 21:49 | XMS REPORT | Continuity of Care Document ---
:1950 Author Organization [facility] t Address [address] [place] [address] Dr. [address] [place] [address] Care Team Providers Name Role Phone Kyler Mandujano MD Primary Care Physician Unavailable MORIAH JI Attending Clinician Unavailable Mason CHOI, Charity Marc Attending Clinician BOLIVAR MONROY Attending Clinician Unavailable Maile Kessler Attending Clinician Rigoberto Ojeda MD Attending Clinician Bolivar Monroy MD Attending Clinician ICARAN DANIELS Attending Clinician Unavailable Ciaran Tavarez Attending Clinician Tuyet Ruffin Attending Clinician MORIAH JI Attending Clinician Unavailable Aiden Killian Attending Clinician Moriah Ji MD Attending Clinician MORIAH JI Admitting Clinician Unavailable RIGOBERTO OJEDA Admitting Clinician Unavailable Payers Payer Name Policy Type Policy Number Effective Date Expiration Date Arcelia ALLAN DUAL [id number] COMPLETE SNP PPO-[employer] MEDICARE PART A \\T\\ [id number] B - MEDICARE UNITED MEDICARE HMO [id number] 2020 00:00:00 [facility] [id number] 2020 00:00:00 Problems Condition Condition Condition Status Onset Resolution Last Treating Co mments Source Name Details Category Date Date Treatment Clinician Date SBO (small SBO (small Disease Active U nivers bowel bowel 7-27 [place] n) 00 Medical [facility] Inflammati Inflammati Disease Active U nivers on of on of 8- ity of sacroiliac sacroiliac 00:00[place] joint joint 00 Medical Branch Lumbar Lumbar Disease Active 2017-05 Univers spondylosi spondylosi 2-19 it y of s s 00:00: [place] [facility] Myofascial Myofascial Disease Active 2017-05 U nivers pain pain 2-19 ity of 00:00: [place] [facility] Lumbar Lumbar Disease Active 2017-05 Univers radiculopa radiculopa 2-19 it y of thy thy 00:00: Medical Branch Spinal Spinal Disease Active 2017-05 Univers stenosis stenosis 2-19 ity of of lumbar of lumbar 00:[place] Dyslipidem Dyslipidem Disease Active U nivers ia ia 1-19 ity of 00:00: [place] [facility] Type 2 Type 2 Disease Active Univers diabetes diabetes 7-13 ity of mellitus mellitus 00:00: [place] without without 00 Medical complicati complicati Br anch on on Essential Essential Disease Active Uni vers hypertensi hypertensi 4-04 it y of on on 00:00: [place] [facility] Allergies, Adverse Reactions, Alerts Allergy Allergy Status Severity Reaction(s) Onset Inactive Treating Comm ents Source Name Type Date Date Clinician NO KNOWN Drug Active Univers ALLERGIE Class ity of S [facility] NO KNOWN Allergy Active [facility] Social History Social Habit Start Date Stop Date Quantity Comments Source History of Chews Tobacco University of tobacco use [facility] History SDOH Eran Colle ge of Alcohol Comment Medicine History [facility] ge of Alcohol Std Medicine Drinks History [facility] ge of Alcohol Binge Medicine Exposure to 2021-11-26 2021-12-06 Not sure University SARS-CoV-2 00:00:00 20:43:00 [place] Medical (event) Branch Cigarette 2021-10-13 2021-10-13 [facility] College of pack-years 00:00:00 00:00:00 Medicine Alcohol intake 2021-10-13 2021-10-13 Lifetime [facility] Col lege of 00:00:00 00:00:00 non-drinker Medicine (finding) History [facility] 2020-06-22 2020-06-22 1 [facility] ge of Alcohol Frequency 00:00:00 00:00:00 Medicin e Tobacco Comment 2015-08-03 2015-08-03 10 years; quit 20 Un iversity of 00:00:00 00:00:00 years ago [facility] Tobacco use and 2015-08-03 2015-08-03 Former smokeless Uni versity of exposure 00:00:00 00:00:00 tobacco user [facility] Sex Ass[birth year] At [birth year] Universit y of 00:00:00 00:00:00 [facility] Smoking Status Start Date Stop Date Source Never smoked tobacco [facility] Medications Ordered Filled Start Stop Current Ordering Indication Dosage Frequency Signature Comments Components Source Medication Medication Date Date Medication? Clinician (SIG) Name Name morphine ER Yes [id number] 15mg Take 15 mg Univers 15 mg 12 hr 7-31 by mouth ity of tablet 01:02: every 6 [place] 00 (six) Medical hours as Branch needed for Pain. Indication s: chronic pain morphine ER Yes [id number] 15mg Take 15 mg Univers 15 mg 12 hr 7-29 by mouth ity of tablet 13:05: every 6 [place] 37 (six) Medical hours as Branch needed for Pain. Indication s: chronic pain morpHINE (2 2021- 2mg 2 mg, Slow Univers mg/mL) 12-09 IV Push, ity of injection 2 09:00: 08:11 ONCE, 1 [place] mg 00 :00 dose, On Medical Fri Branch 12/09/21 at 0400, Routine pantoprazol 2021- Yes [id number] 40mg Take 1 Univers e 40 mg EC 12-09 tablet by ity of tablet 00:00: 04:59 mouth in [place] 00 :00 the Medical morning Branch for 30 days. pantoprazol 2021- Yes [id number] 40mg Take 1 Univers e 40 mg EC 12-09 tablet by ity of tablet 00:00: 04:59 mouth in [place] 00 :00 the [facility] Branch for 30 days. morphine IR Yes [id number] 15mg 15 mg, Univ ers (MSIR) 12-08 Oral, ity of tablet 15 22:27: Q6HPRN, [place] mg 28 Starting Medical on [place] Branch 12/08/21 at 1727, Until Discontinu ed, Routine, Pain (scale 7-10) Sliding Yes Subcutaneo Univ ers Scale 7-28 us, AC+HS, ity of Insulin-Reg 21:30: First dose [place] ular + Fsbg 00 (after Medica l Testing last Branch modificati on) on Areli 12/08/21 at 1630, Until Discontinu ed, Routine HYDROcodone 2021- No 1{tbl} 1 tablet, Univers -acetaminop 12-08 Oral, ity of hen (NORCO 14:54: 22:29 Q6HPRN, [place] as 5) 5-325 mg 20 :01 Starting Medi cuong tablet 1 on [facility] Branch tablet 12/08/21 at 0954, Until [place]li 12/08/21 at 1729, Routine, Pain (scale 7-10) D5W 0.9% Yes 1000mL at 50 Univer s NaCl (NS) 12-08 mL/hr, ity of IV infusion 14:00: 1,000 mL, [place] 1,000 mL 00 IV Medical Infusion, Branch CONTINUOUS , Starting on [place]li 12/08/21 at 0900, Until Discontinu ed, Routine morpHINE (2 2021- No 2mg 2 mg, Slow Univers mg/mL) 12-08 IV Push, ity of injection 2 12:00: 11:38 ONCE, 1 [place] mg 00 :00 dose, On Medical [place] Branch 12/08/21 at 0700, Routine pantoprazol Yes 40mg 40 mg, Univ ers e 12-07 Slow IV ity of (PROTONIX) 15:30: Push, [place] injection 00 Q24H, Medical 40 mg First dose Branch on Sun12/07/21 at 1030, Until Discontinu ed D5W 0.9% 2021- No 1000mL at 125 Univ ers NaCl (NS) 12-07 mL/hr, ity of IV infusion 15:30: 13:47 1,000 mL, [place] 1,000 mL 00 :13 IV Medical Infusion, Branch CONTINUOUS , Starting on Sun12/07/21 at 1030, Until Areli 12/08/21 at 0847, Routine NaCl 0.9% 2021- No 1000mL at 999 Uni vers (NS) IV 12-07 mL/hr, IV ity of infusion 15:30: 17:31 Infusion, [place] as 1,000 mL 00 :00 ONCE, 1 Medical dose, On Branch Sun12/07/21 at 1030, Routine glycerin/mi 2021- No 225mL 225 mL, U nivers neral oil 12-07 Rectal, ity of (AGLO 15:30: 15:35 ONCE, 1 [place] ENEMA) 00 :00 dose, On Medical (COMPOUNDED Sun ) Enem 225 12/07/21 at mL 1030, Routine enoxaparin Yes 40mg 40 mg, Unive rs (LOVENOX) 12-07 Subcutaneo ity of injection 14:00: us, DAILY, [place] 40 mg 00 First dose Medical on [facility] Branch 12/07/21 at 0900, Until Discontinu ed, Routine piperacilli No 3.375g 3.375 g, Univers n-tazobacta 12-07 IV ity of m (ZOSYN) 13:00: 14:26 Piggyback, [place] 3.375 g in 00 :54 Q8H ABX, Medic al NaCl 0.9% First dose Bran ch (NS) 50 mL (after MINI-BAG last reorder) on Sun12/07/21 at 0800, Until Discontinu ed, Administer over 30 Minutes, 50 mL
Reas on for Anti-Infec tive: Empiric Therapy for Suspected Infection< br>Empiric Therapy Site: Abdominal< br>Duratio n of therapy: 72 hours ketorolac 2021- No 15mg 15 mg, Unive rs (TORADOL) 12-07 Slow IV ity of injection 12:45: 11:39 Push, [place] 15 mg 00 :00 ONCE, 1 Medical dose, On Branch Sun12/07/21 at 0745, Routine hydralAZINE Yes 10mg 10 mg, Univ ers (APRESOLINE 12-07 Slow IV ity o f ) injection 11:13: Push, [place] 10 mg 41 Q6HPRN, Medical Starting Branch on Sun12/07/21 at 0613, Until Discontinu ed, Routine, DBP=>10 0; SBP=>160, DBP=>100; SBP=>180 NaCl 0.9% 2021- No 1000mL at 75 Univ ers (NS) IV 12-07 mL/hr, IV ity of infusion 09:15: 08:31 Infusion, [place] 1,000 mL 00 :00 ONCE, 1 Medical dose, On Branch Sun12/07/21 at 0415, Routine ketorolac 2021- No 15mg 15 mg, Unive rs (TORADOL) 12-07 Slow IV ity of injection 08:35: 06:19 Push, [place] 15 mg 32 :00 Q6HPRN, 4 Medical doses, Branch Starting on Sun12/07/21 at 0335, Until Discontinu ed, Routine, Pain (scale 7-10) Sliding Subcutaneo Uni vers Scale 12-07 us, Q6H, ity of Insulin-Reg 08:15: 20:58 First dose [place] ular + Fsbg 00 :02 (after Medica l Testing last Branch modificati on) on Sun12/07/21 at 0315, Until Discontinu ed, Routine dextrose Yes 250mL 250 mL, IV Un aditya 10% (D10W) 12-07 Infusion, ity of bolus 07:43: PRN - SEE [place] infusion 32 INSTRUCTIO Medic al 250 mL NS, Branch Administer over 60 Minutes, Other, If blood glucose is < or = 70 mg/dL and patient is unable to swallow or has mental status changes, Starting on 12/07/21 at 0243
If blood glucose is < or = 70 mg/dL and patient is unable to swallow or has mental status changes (Give glucagon order if patient needs fluid restrictio n): IF IV access available: Dextrose 10%. 1. 125 mL (? bag) of D10W IV infusion - equivalent to 12.5 g dextrose 2. Blood glucose - draw blood glucose 15 minutes after D10W Administra tion. 3. If blood glucose is < 80 mg/dL, repeat.
glucagon Yes 1mg 1 mg, Univers (GLUCAGEN 12-07 Intramuscu ity of DIAGNOSTIC 07:43: lar, PRN, [place] KIT) 29 Starting Medical injection 1 on Wed Branch mg 12/07/21 at 0243, Until Discontinu ed, MILE, Blood Glucose < or = 70 mg/dL and patient is unable to swallow or has mental changes. ondansetron Yes 4mg 4 mg, Slow Univers (ZOFRAN 12-07 IV Push, ity of (PF)) 07:43: Q6HPRN, [place] injection 4 06 Starting Medi cuong mg on Wed Branch 12/07/21 at 0243, Until Discontinu ed, Routine, Nausea and Vomiting (N/V) insulin 2021- No 10U 10 Units, Univ ers regular 12-07 Subcutaneo ity o f human 06:21: 06:22 , ONCE, [place] (HUMULIN R) 00 :00 1 dose, On Me dical injection Wed Branch 10 Units 12/07/21 at 0130, Routine diazePAM 2021- No 5mg 5 mg, Slow Un aditya (VALIUM) 12-07 IV Push, ity of injection 5 06:00: 06:01 ONCE, 1 [place] mg 00 :00 dose, On Medical Wed Branch 12/07/21 at 0100, STAT insulin 2021- No 10U 10 Units, Univ ers regular 12-07 Subcutaneo ity o f human 06:00: 05:00 us, ONCE, [place] (HUMULIN R) 00 :00 1 dose, On Me dical injection Wed Branch 10 Units 12/07/21 at 0100, Routine iopamidol 2021- No [id number] 60mL 60 mL, U nivers (ISOVUE 12-07 Intravenou ity o f 370-500 mL) 06:00: 06:00 s, ONCE, 1 [place] injection 00 :00 dose, On Medica l 60 mL Wed Branch 12/07/21 at 0100, Routine piperacilli 2021- No 3.375g 3.375 g, Univers n-tazobacta 12-07 IV ity of m (ZOSYN) 05:30: 06:16 Piggyback, [place] 3.375 g in 00 :00 ONCE, 1 Medica l NaCl 0.9% dose, On Branch (NS) 50 mL Wed MINI-BAG 12/07/21 at 0030, Administer over 30 Minutes, 50 mL
R susanne for Anti-Infec tive: Empiric Therapy for Suspected Infection< br>Empiric Therapy Site: Abdominal< br>Duratio n of therapy: 72 hours morpHINE (4 No 4mg 4 mg, Slow Univers mg/mL) 12-07 IV Push, ity of injection 4 05:30: 05:30 ONCE, 1 [place] mg 00 :00 dose, On Medical Wed Branch 12/07/21 at 0030, STAT ondansetron 2021- No 4mg 4 mg, Slow Univers (ZOFRAN 12-07 IV Push, ity of (PF)) 04:30: 04:26 ONCE, 1 [place] injection 4 00 :00 dose, On Medi cuong mg Tue Branch 12/06/21 at 2330, MILE ondansetron 2021- No 4mg 4 mg, Slow Univers (ZOFRAN 12-07 IV Push, ity of (PF)) 02:00: 02:00 ONCE, 1 [place] injection 4 00 :00 dose, On Medi cuong mg Tue Branch 12/06/21 at 2100, MILE naproxen 2021- Yes [id number] 500mg Take 1 Univers 500 mg 7-17 07-23 tablet by ity of tablet 00:00: 04:59 mouth in [place] 00 :00 the Medical morning Branch and 1 tablet in the evening. Take with meals. Do all this for 5 days. cyclobenzap 2021- Yes [id number] 10mg Take 1 Univers rine 10 mg 7-17 07-23 tablet by ity of tablet 00:00: 04:59 mouth 3 [place] 00 :00 (three) Medical times [place] daily as needed for Muscle Spasms for up to 5 days. naproxen 2021- Yes [id number] 500mg Take 1 Univers 500 mg 7-17 07-23 tablet by ity of tablet 00:00: 04:59 mouth in [place] 00 :00 the [facility] morning Branch and 1 tablet in the evening. Take with meals. Do all this for 5 days. cyclobenzap 2021- Yes [id number] 10mg Take 1 Univers rine 10 mg 7-17 07-23 tablet by ity of tablet 00:00: 04:59 mouth 3 [place] 00 :00 (three) [facility] times [place] daily as needed for Muscle Spasms for up to 5 days. naproxen 2021- Yes [id number] 500mg Take 1 Univers 500 mg 7-17 07-23 tablet by ity of tablet 00:00: 04:59 mouth in [place] 00 :00 the [facility] morning [place] and 1 tablet in the evening. Take with meals. Do all this for 5 days. cyclobenzap 2021- Yes [id number] 10mg Take 1 Univers rine 10 mg 7-17 07-23 tablet by ity of tablet 00:00: 04:59 mouth 3 [place] 00 :00 (three) [facility] times [place] daily as needed for Muscle Spasms for up to 5 days. lidocaine 5 2021- Yes [id number] 1{patch Apply 1 Univers % (700 7-17 07-18 } Patch to ity of mg/patch) 00:00: 04:59 area(s) [place] patch 00 :00 once now Medical for 1 Branch dose. lidocaine 5 2021- Yes [id number] 1{patch Apply 1 Univers % (700 7-17 07-18 } Patch to ity of mg/patch) 00:00: 04:59 area(s) [place] patch 00 :00 once now Medical for 1 Branch dose. Tamsulosin 0 Yes .4mg Take 0.4 [place] parveen HCl 0.4 MG 6-02 mg by [place] CAPS 11:56: mouth. of 12 Medicin e Insulin 0 Yes 20U Inject 20 [place] NPH, 6-02 Units into [place] Human,, 11:56: the skin. of Isophane, 12 Medicin 100 UNIT/ML e SUPN metformin 0 Yes 1000mg Take 1,000 Eran (GLUCOPHAGE 6-02 mg by [place] ) 1000 MG 11:56: mouth. of tablet 12 Medicin e levothyroxi Yes 50ug Take 50 [place] parveen ne 6-02 mcg by [place] (SYNTHROID) 11:56: mouth. of 50 MCG 12 Medicin tablet e HUMULIN R Yes [facility] 100 UNIT/ML 5-16 College injection 00:00: of 00 Medicin e triamcinolo 0 2022- No [id number] 16mg [facility] 09-08 ity of acetonide 22:15: 21:10 [place] (KENALOG) 00 :00 Medical injection Branch 16 mg triamcinolo 0 2021- No [id number] 16mg 16 mg, [facility] 09-08 Intra-jose ity of acetonide 22:15: 21:10 [place], [place] (KENALOG) 00 :00 ONCE, 1 Medical injection dose, On Branch 16 mg Areli 09/08/21 at 1715, Routine lisinopril 0 Yes [facility] (PRINIVIL, 3-30 [place] ZESTRIL) 40 00:00: of MG tablet 00 Medicin e pravastatin 0 Yes [facility] (PRAVACHOL) 3-27 [place] 80 MG 00:00: of tablet 00 Medicin e glimepiride 0 Yes [facility] (AMARYL) 4 3-18 College MG tablet 00:00: of 00 Medicin e oxybutynin 0 Yes [id number] TAKE ONE [facility] (DITROPAN-X 2-28 TABLET BY Col donna Houser) 10 MG CR 00:00: MOUTH of tablet 00 DAILY Medicin e bromphenira 2020-05 Yes [id number] 5mL Take 5 mL Univers mine-pseudo 0-15 by mouth 4 it y of ephedrine-D 00:00: (four) [place] M (BROMFED 00 times Medical DM) 2-30-10 daily as Bran ch mg/5 mL needed for syrup Congestion /Allergies . benzonatate 2020-05 Yes [id number] 200mg Take 2 Univers 100 mg 0-15 capsules ity of capsule 00:00: by mouth 2 [place] 00 (two) Medical times Branch daily as needed for Cough. azelastine 2020-05 Yes [id number] 1{spray Use 1 Univers 137 mcg 0-15 } [place] in ity of (0.1 %) 00:00: each [place] nasal spray 00 nostril 2 Med ical (two) Branch times daily. Use in each nostril as directed fluticasone 2020-05 Yes [id number] 1{spray Use 1 Univers propionate 0-15 } [place] in ity o f 50 00:00: each [place] mcg/actuati 00 nostril Medic al on nasal daily. Branch spray codeine-gua 2020-05 Yes 5mL Take 5 mL U nivers ifenesin 0-15 by mouth ity of 10-100 mg/5 00:00: every 6 [place] as mL oral 00 (six) Medical solution hours as Branch needed for Cough. Indication s: cough bromphenira 2020-05 Yes [id number] 5mL Take 5 mL Univers mine-pseudo 0-15 by mouth 4 it y of ephedrine-D 00:00: (four) [place] M (BROMFED 00 times Medical DM) 2-30-10 daily as Bran ch mg/5 mL needed for syrup Congestion /Allergies . benzonatate 2020-05 Yes [id number] 200mg Take 2 Univers 100 mg 0-15 capsules ity of capsule 00:00: by mouth 2 [place] 00 (two) Medical times Branch daily as needed for Cough. azelastine 2020-05 Yes [id number] 1{spray Use 1 Univers 137 mcg 0-15 } [place] in ity of (0.1 %) 00:00: each [place] nasal spray 00 nostril 2 Med ical (two) Branch times daily. Use in each nostril as directed fluticasone 2020-05 Yes [id number] 1{spray Use 1 Univers propionate 0-15 } [place] in ity o f 50 00:00: each [place] mcg/actuati 00 nostril Medic al on nasal daily. Branch spray bromphenira 2020-05 Yes [id number] 5mL Take 5 mL Univers mine-pseudo 0-15 by mouth 4 it y of ephedrine-D 00:00: (four) [place] M (BROMFED 00 times Medical DM) 2-30-10 daily as Bran ch mg/5 mL needed for syrup Congestion /Allergies . benzonatate 2020-05 Yes [id number] 200mg Take 2 Univers 100 mg 0-15 capsules ity of capsule 00:00: by mouth 2 [place] 00 (two) Medical times Branch daily as needed for Cough. azelastine 2020-05 Yes [id number] 1{spray Use 1 Univers 137 mcg 0-15 } [place] in ity of (0.1 %) 00:00: each [place] nasal spray 00 nostril 2 Med ical (two) Branch times daily. Use in each nostril as directed fluticasone 2020-05 Yes [id number] 1{spray Use 1 Univers propionate 0-15 } [place] in ity o f 50 00:00: each [place] mcg/actuati 00 nostril Medic al on nasal daily. Branch spray bromphenira 2020-05 Yes [id number] 5mL Take 5 mL Univers mine-pseudo 0-15 by mouth 4 it y of ephedrine-D 00:00: (four) [place] M (BROMFED 00 times Medical DM) 2-30-10 daily as Bran ch mg/5 mL needed for syrup Congestion /Allergies . benzonatate 2020-05 Yes [id number] 200mg Take 2 Univers 100 mg 0-15 capsules ity of capsule 00:00: by mouth 2 [place] 00 (two) Medical times Branch daily as needed for Cough. azelastine 2020-05 Yes [id number] 1{spray Use 1 Univers 137 mcg 0-15 } [place] in ity of (0.1 %) 00:00: each [place] nasal spray 00 nostril 2 Med ical (two) Branch times daily. Use in each nostril as directed fluticasone 2020-05 Yes [id number] 1{spray Use 1 Univers propionate 0-15 } [place] in ity o f 50 00:00: each [place] mcg/actuati 00 nostril Medic al on nasal daily. Branch spray bromphenira 2020-05 Yes [id number] 5mL Take 5 mL Univers mine-pseudo 0-15 by mouth 4 it y of ephedrine-D 00:00: (four) [place] M (BROMFED 00 times Medical DM) 2-30-10 daily as Bran ch mg/5 mL needed for syrup Congestion /Allergies . benzonatate 2020-05 Yes [id number] 200mg Take 2 Univers 100 mg 0-15 capsules ity of capsule 00:00: by mouth 2 [place] 00 (two) Medical times Branch daily as needed for Cough. azelastine 2020-05 Yes [id number] 1{spray Use 1 Univers 137 mcg 0-15 } [place] in ity of (0.1 %) 00:00: each [place] nasal spray 00 nostril 2 Med ical (two) Branch times daily. Use in each nostril as directed fluticasone 2020-05 Yes [id number] 1{spray Use 1 Univers propionate 0-15 } [place] in ity o f 50 00:00: each [place] mcg/actuati 00 nostril Medic al on nasal daily. Branch spray bromphenira 2020-05 Yes [id number] 5mL Take 5 mL Univers mine-pseudo 0-15 by mouth 4 it y of ephedrine-D 00:00: (four) [place] M (BROMFED 00 times Medical DM) 2-30-10 daily as Bran ch mg/5 mL needed for syrup Congestion /Allergies . benzonatate 2020-05 Yes [id number] 200mg Take 2 Univers 100 mg 0-15 capsules ity of capsule 00:00: by mouth 2 [place] 00 (two) Medical times Branch daily as needed for Cough. azelastine 2020-05 Yes [id number] 1{spray Use 1 Univers 137 mcg 0-15 } [place] in ity of (0.1 %) 00:00: each [place] nasal spray 00 nostril 2 Med ical (two) Branch times daily. Use in each nostril as directed fluticasone 2020-05 Yes [id number] 1{spray Use 1 Univers propionate 0-15 } [place] in ity o f 50 00:00: each [...] for Cough. Indication s: cough tramadol Yes 1{tbl} Take 1 [facility] [place] (ULTRAM) 50 5-27 Tablet by Col lege MG tablet 00:00: mouth of 00 every 6 Medicin hours as e needed. sulfamethox Yes 1{tbl} Take 1 [facility] azole-trime 5-27 Tablet by Col lege thoprim 00:00: mouth two of (BACTRIM 00 times Medicin DS) 800-160 daily. e MG per tablet phenazopyri Yes Take by [facility] [address] (PYRIDIUM) 00:00: every 8 of 200 MG 00 hours PRN. Medicin tablet e docusate Yes 100mg Take 1 [facility] sodium 5-27 capsule by [place] (COLACE) 00:00: mouth two of 100 MG 00 times Medicin capsule daily. e tramadol Yes 1{tbl} Take 1 [facility] [place] (ULTRAM) 50 5-27 Tablet by Col lege MG tablet 00:00: mouth of 00 every 6 Medicin hours as e needed. sulfamethox Yes 1{tbl} Take 1 [place] azole-trime 5-27 Tablet by Col lege thoprim 00:00: mouth two of (BACTRIM 00 times Medicin DS) 800-160 daily. e MG per tablet phenazopyri Yes Take by [facility] 5-27 [facility] (PYRIDIUM) 00:00: every 8 of 200 MG 00 hours PRN. Medicin tablet e docusate Yes [id number] 100mg Take 1 [facility] sodium 5-27 capsule by [place] (JARED) 00:00: mouth two of 100 MG 00 times Medicin capsule daily. e oxybutynin Yes [id number] 10mg Take 1 [facility] (DITROPAN-X 2-12 Tablet by Col donna Houser) 10 MG CR 00:00: mouth of tablet 00 daily. Medicin e methylPREDN 2019-05 Yes [id number] 84mg Take 21 Univers ISolone 1-19 [id number] tablets by ity o f (MEDROL, 00:00: mouth [place] RUY,) 4 mg 00 SEE-INSTRU Med ical tablets CTIONS. Branch follow package directions meloxicam 2019-05 Yes [id number] 7.5mg Take 1 Univers 7.5 mg 06-01 tablet by ity of tablet 00:00: mouth [place] 00 daily. Medical Branch methylPREDN 2019-05 Yes [id number] 84mg Take 21 Univers ISolone - [id number] tablets by ity o f (MEDROL, 00:00: mouth [place] RUY,) 4 mg 00 SEE-INSTRU Med ical tablets CTIONS. Branch follow package directions methylPREDN 2019-05 Yes [id number] 84mg Take 21 Univers ISolone - [id number] tablets by ity o f (MEDROL, 00:00: mouth [place] RUY,) 4 mg 00 SEE-INSTRU Med ical tablets CTIONS. Branch follow package directions methylPREDN 2019-05 Yes [id number] 84mg Take 21 Univers ISolone 1- [id number] tablets by ity o f (MEDROL, 00:00: mouth [place] RUY,) 4 mg 00 SEE-INSTRU Med ical tablets CTIONS. Branch follow package directions methylPREDN 2019-05- No [id number] 84mg Take 21 Univers ISolone 1-12-09 [id number] tablets by ity of (MEDROL, 00:00: 00:00 mouth [place] RUY,) 4 mg 00 :00 SEE-INSTRU Med ical tablets CTIONS. Branch follow package directions meloxicam 2019-05- No [id number] 7.5mg Take 1 Univers 7.5 mg 06-01- 76585 tablet by ity of tablet 00:00: 00:00 mouth [place] 00 :00 daily. Medical Branch atorvastati 2018-0 Yes [id number] 20mg Take 1 Univers n (LIPITOR) 5-14 tablet by ity of 20 mg 00:00: mouth at [place] tablet 00 bedtime. Medical Branch atorvastati 2017-0 Yes [id number] 20mg Take 1 Univers n (LIPITOR) 5-14 tablet by ity of 20 mg 00:00: mouth at [place] tablet 00 bedtime. Medical Branch atorvastati 2017-0 Yes [id number] 20mg Take 1 Univers n (LIPITOR) 5-14 tablet by ity of 20 mg 00:00: mouth at [place] tablet 00 bedtime. Medical Branch atorvastati 0 Yes [id number] 20mg Take 1 Univers n (LIPITOR) 5-14 tablet by ity of 20 mg 00:00: mouth at [place] tablet 00 bedtime. Medical Branch atorvastati 2017-0 Yes [id number] 20mg Take 1 Univers n (LIPITOR) 5-14 tablet by ity of 20 mg 00:00: mouth at [place] tablet 00 bedtime. Medical Branch atorvastati 2017-0 Yes [id number] 20mg Take 1 Univers n (LIPITOR) 5-14 tablet by ity of 20 mg 00:00: mouth at [place] tablet 00 bedtime. Medical Branch lisinopril 2018-0 Yes [id number] 40mg Take 1 U nivers 40 mg 5-08 tablet by ity of tablet 00:00: mouth [place] 00 daily. Medical Branch lisinopril 2018-0 Yes [id number] 40mg Take 1 U nivers 40 mg 5-08 tablet by ity of tablet 00:00: mouth [place] 00 daily. Medical Branch lisinopril 2018-0 Yes [id number] 40mg Take 1 U nivers 40 mg 5-08 tablet by ity of tablet 00:00: mouth [place] 00 daily. Medical Branch lisinopril 2018-0 Yes [id number] 40mg Take 1 U nivers 40 mg 5-08 tablet by ity of tablet 00:00: mouth [place] 00 daily. [facility] Branch lisinopril 2018-0 2022- No [id number] 40mg Take 1 Univers 40 mg 5-08 07-27 tablet by ity of tablet 00:00: 00:00 mouth [place] 00 :00 daily. Medical Branch acetaminoph 2016-05 Yes [id number] 05/15 Univers en-codeine 2-31 tab Every ity of 300-30 mg 00:00: 4hrs as [place] tablet 00 needed for Medical pain or Branch cough requiring narcotic acetaminoph 2016-05 Yes [id number] 05/15 - Univers en-codeine 2-31 tab Every ity of 300-30 mg 00:00: 4hrs as [place] tablet 00 needed for Medical pain or Branch cough requiring narcotic acetaminoph 2016-05 Yes [id number] 05/15 Univers en-codeine 2-31 tab Every ity of 300-30 mg 00:00: 4hrs as [place] tablet 00 needed for Medical pain or Branch cough requiring narcotic acetaminoph 2016-05 Yes [id number] 05/15 Univers en-codeine 2-31 tab Every ity of 300-30 mg 00:00: 4hrs as [place] tablet 00 needed for Medical pain or Branch cough requiring narcotic acetaminoph 2016-05 Yes [id number] 05/15 Univers en-codeine 2-31 tab Every ity of 300-30 mg 00:00: 4hrs as [place] tablet 00 needed for Medical pain or Branch cough requiring narcotic acetaminoph 2016-05 Yes [id number] 05/15 Univers en-codeine 2-31 tab Every ity of 300-30 mg 00:00: 4hrs as [place] tablet 00 needed for Medical pain or Branch cough requiring narcotic AMLODIPINE 2016-05 Yes [id number] TAKE ONE Univers 10 mg 2-22 TABLET BY ity of tablet 00:00: MOUTH ONCE DAILY Medical Branch AMLODIPINE 2017 Yes [id number] TAKE ONE Univers 10 mg 2-22 TABLET BY ity of tablet 00:00: MOUTH ONCE DAILY Medical Branch AMLODIPINE 2016-05 Yes [id number] TAKE ONE Univers 10 mg 2-22 TABLET BY ity of tablet 00:00: MOUTH ONCE DAILY Medical Branch AMLODIPINE 2016-05 Yes [id number] TAKE ONE Univers 10 mg 2-22 TABLET BY ity of tablet 00:00: MOUTH ONCE DAILY Medical Branch AMLODIPINE 2016-05 Yes [id number] TAKE ONE Univers 10 mg 2-22 TABLET BY ity of tablet 00:00: MOUTH ONCE DAILY Medical Branch AMLODIPINE 2016-05 Yes [id number] TAKE ONE Univers 10 mg 2-22 TABLET BY ity of tablet 00:00: MOUTH ONCE 00 DAILY Medical Branch insulin Yes [id number] Take 22 Un aditya 70/30 100 8-16 units ity of unit/mL 00:00: before [place] (70-30) 00 breakfast Medical injection and 20 Branch units before dinner- Take 30 minutes before meals twice daily insulin Yes [id number] Take 22 Un aditya 70/30 100 8-16 units ity of unit/mL 00:00: before [place] (30) 00 breakfast Medical injection and 20 Branch units before dinner- Take 30 minutes before meals twice daily insulin Yes [id number] Take 22 Un aditya 70/30 100 8-16 units ity of unit/mL 00:00: before (30) 00 breakfast Medical injection and 20 Branch units before dinner- Take 30 minutes before meals twice daily insulin Yes [id number] Take 22 Un aditya 70/30 100 8-16 units ity of unit/mL 00:00: before (30) 00 breakfast Medical injection and 20 Branch units before dinner- Take 30 minutes before meals twice daily insulin 2021- No [id number] Take 22 U nivers 70/30 100 8-16 07-29 units ity of unit/mL 00:00: 00:00 before (30) 00 :00 breakfast Medical injection and 20 Branch units before dinner- Take 30 minutes before meals twice daily metformin Yes [id number] 1000mg Take 2 Univers ER 500 mg 5-10 tablets by ity of 24 hr 00:00: mouth 2 [place] tablet 00 (two) Medical times Branch daily with meals. glimepiride Yes [id number] 4mg Take 1 Univers (AMARYL) 4 5-10 tablet by ity of mg tablet 00:00: mouth 2 [place] 00 (two) Medical times Branch daily. metformin Yes [id number] 1000mg Take 2 Univers ER 500 mg 5-10 tablets by ity of 24 hr 00:00: mouth 2 [place] tablet 00 (two) Medical times Branch daily with meals. glimepiride Yes [id number] 4mg Take 1 Univers (AMARYL) 4 5-10 tablet by ity of mg tablet 00:00: mouth 2 (two) Medical times Branch daily. metformin Yes [id number] 1000mg Take 2 Univers ER 500 mg 5-10 tablets by ity of 24 hr 00:00: mouth 2 [place] tablet 00 (two) Medical times Branch daily with meals. glimepiride Yes [id number] 4mg Take 1 Univers (AMARYL) 4 5-10 tablet by ity of mg tablet 00:00: mouth 2 (two) Medical times Branch daily. metformin Yes [id number] 1000mg Take 2 Univers ER 500 mg 5-10 tablets by ity of 24 hr 00:00: mouth 2 [place] tablet 00 (two) Medical times Branch daily with meals. glimepiride Yes [id number] 4mg Take 1 Univers (AMARYL) 4 5-10 tablet by ity of mg tablet 00:00: mouth 2 (two) Medical times Branch daily. metformin Yes [id number] 1000mg Take 2 Univers ER 500 mg 5-10 tablets by ity of 24 hr 00:00: mouth 2 [place] tablet (two) Medical times Branch daily with meals. glimepiride Yes [id number] 4mg Take 1 Univers (AMARYL) 4 5-10 tablet by ity of mg tablet 00:00: mouth (two) Medical times Branch daily. metformin Yes [id number] 1000mg Take 2 Univers ER 500 mg 5-10 tablets by ity of 24 hr 00:00: mouth 2 [place] tablet 00 (two) Medical times Branch daily with meals. glimepiride Yes [id number] 4mg Take 1 Univers (AMARYL) 4 5-10 tablet by ity of mg tablet 00:00: mouth 2 (two) Medical times Branch daily. NAPROXEN Yes TAKE ONE Unive rs 500 mg 3-27 TABLET BY ity of tablet 00:00: MOUTH [place] 00 TWICE Medical DAILY WITH Branch MEALS NAPROXEN 2021- No TAKE ONE Univ ers 500 mg 3-27 07-17 TABLET BY ity of tablet 00:00: 00:00 MOUTH [place] 00 :00 TWICE Medical DAILY WITH Branch MEALS mupirocin 2 Yes [id number] Apply to Univers % ointment 3-25 [id number] area(s) 3 it y of 00:00: (three) [place] 00 times Medical daily. Branch mupirocin 2 2017- Yes [id number] Apply to Univers % ointment 3-25 [id number] area(s) 3 it y of 00:00: (three) [place] 00 times Medical daily. Branch mupirocin 2 Yes [id number] Apply to Univers % ointment 3-25 850001 area(s) 3 it y of 00:00: (three) [place] 00 times Medical daily. Branch mupirocin 2 Yes [id number] Apply to Univers % ointment 3-25 [id number] area(s) 3 it y of 00:00: (three) [place] 00 times Medical daily. Branch mupirocin 2 Yes [id number] Apply to Univers % ointment 3-25 [id number] area(s) 3 it y of 00:00: (three) [place] 00 times Medical daily. Branch mupirocin 2 Yes [id number] Apply to Univers % ointment 3-25 [id number] area(s) 3 it y of 00:00: (three) [place] 00 times Medical daily. Branch insulin Yes [id number] Use twice Univers syringe,saf 4-04 daily ity of etyneedle 00:00: [place] ([facility] Medical INSULIN Branch SAFETY SYRNG) 1 mL 29 gauge x 1/2" Syrg insulin Yes [id number] Use twice Univers syringe,saf 4-04 daily ity of etyneedle 00:00: [place] ([facility] Medical INSULIN Branch SAFETY SYRNG) 1 mL 29 gauge x 1/2" Syrg insulin Yes [id number] Use twice Univers syringe,saf 4-04 daily ity of etyneedle 00:00: [place] ([facility] Medical INSULIN Branch SAFETY SYRNG) 1 mL 29 gauge x 1/2" Syrg insulin 2015- Yes [id number] Use twice Univers syringe,saf 4-04 daily ity of etyneedle 00:00: [place] ([facility] Medical INSULIN Branch SAFETY SYRNG) 1 mL 29 gauge x 1/2" Syrg insulin 2015- Yes [id number] Use twice Univers syringe,saf 4-04 daily ity of etyneedle 00:00: [place] ( Medical INSULIN Branch SAFETY SYRNG) 1 mL 29 gauge x 1/2" Syrg insulin 2016-0 Yes [id number] Use twice Univers syringe,saf 4-04 daily ity of etyneedle 00:00: [place] (LL Medical INSULIN Branch SAFETY SYRNG) 1 mL 29 gauge x 1/2" Syrg Vital Signs Vital Name Observation Time Observation Value Comments Source HEIGHT 2020-10-07 08:43:00 180.3 cm WEIGHT 2020-10-07 08:43:00 107.14 kg HEIGHT 2020-09-17 14:46:00 180.3 cm WEIGHT 2020-09-17 14:46:00 102.059 kg Systolic blood 2021-12-09 12:21:00 163 mm[Hg] Univer sity of pressure [facility] Diastolic blood 2021-12-09 12:21:00 87 mm[Hg] Unive rsity of [facility] Heart rate 2021-12-09 12:21:00 78 /min [facility] Body temperature 2021-12-09 12:21:00 35.78 [facility]elle [facility] Respiratory rate 2021-12-09 12:21:00 16 /min [facility] Oxygen saturation in 2021-12-09 12:21:00 96 /min [facility] Arterial blood by [facility] Pulse oximetry Branch Body weight 2021-12-09 08:33:00 100.472 kg [facility] BMI 2021-12-09 08:33:00 30.89 kg/m2 [facility] Body height 2021-12-07 01:41:00 180.3 [facility] Systolic blood 2021-11-27 14:34:00 172 mm[Hg] Univer sity of pressure [facility] Diastolic blood 2021-11-27 14:34:00 76 mm[Hg] Unive rsity of pressure [facility] Heart rate 2021-11-27 14:33:00 74 /min Universi ty [facility] Body temperature 2021-11-27 14:33:00 36.11 Joelle [facility] Respiratory rate 2021-11-27 14:33:00 16 /min Univ ersity of [facility] Body height 2021-11-27 14:33:00 180.3 cm Universi ty of [place] [facility] [place] Body weight 2021-11-27 14:33:00 103.783 kg Universi ty of [facility] BMI 2021-11-27 14:33:00 31.91 kg/m2 Universi ty [facility] Oxygen saturation in 2021-11-27 14:33:00 96 /min University Arterial blood by [facility] Pulse oximetry Branch Systolic blood 2021-10-13 16:09:00 150 mm[Hg] [facility] pressure Medicine Diastolic blood 2021-10-13 16:09:00 76 mm[Hg] [facility] Medicine Heart rate 2021-10-13 16:09:00 73 /min [facility] Systolic blood 2021-09-08 21:08:00 173 mm[Hg] Univer [facility] Diastolic blood 2021-09-08 21:08:00 82 mm[Hg] [facility] Heart rate 2021-09-08 21:08:00 65 /min Universi ty of [facility] Body height 2021-09-08 21:00:00 180.3 cm Universi ty of [facility] Body weight 2021-09-08 21:00:00 104.327 kg Universi ty of [facility] BMI 2021-09-08 21:00:00 32.08 kg/m2 Universi ty [facility] HEIGHT 2020-10-07 08:43:00 180.3 cm WEIGHT 2020-10-07 08:43:00 107.14 kg HEIGHT 2020-09-17 14:46:00 180.3 cm WEIGHT 2020-09-17 14:46:00 102.059 kg Procedures Procedure Date / Time Performing Clinician Source Performed POCT GLUCOSE (AUTOMATED) 2021-12-09 16:47:00 Rigoberto Ojeda [facility] POCT GLUCOSE (AUTOMATED) 2021-12-09 12:44:00 Rigoberto Ojeda [facility] BASIC METABOLIC PANEL 2021-12-09 08:48:00 Maile Plaza [facility] (NA, K, CL, CO2, GLUCOSE, Medica l Branch BUN, CREATININE, CA) POCT GLUCOSE (AUTOMATED) 2021-12-09 02:19:00 DaquanRigoberto [facility] POCT GLUCOSE (AUTOMATED) 2021-12-09 01:34:00 DaquanRigoberto [facility] POCT GLUCOSE (AUTOMATED) 2021-12-08 21:33:00 Daquan Rigoberto [facility] POCT GLUCOSE (AUTOMATED) 2021-12-08 16:33:00 Daquan [facility] POCT GLUCOSE (AUTOMATED) 2021-12-08 10:35:00 Daquan [facility] PHOSPHORUS 2021-12-08 09:08:00 [facility] MAGNESIUM 2021-12-08 09:08:00 [facility] BASIC METABOLIC PANEL 2021-12-08 09:08:00 Daquan [facility] (NA, K, CL, CO2, GLUCOSE, Medica l Branch BUN, CREATININE, CA) CBC WITH DIFF 2021-12-08 09:08:00 Daquan [facility] POCT GLUCOSE (AUTOMATED) 2021-12-08 03:59:00 Daquan [facility] POCT GLUCOSE (AUTOMATED) 2021-12-07 21:17:00 Daquan [facility] POCT GLUCOSE (AUTOMATED) 2021-12-07 17:33:00 Daquan [facility] BASIC METABOLIC PANEL 2021-12-07 16:51:00 Georgina [facility] (NA, K, CL, CO2, GLUCOSE, Medica l Branch BUN, CREATININE, CA) CBC WITH DIFF 2021-12-07 16:50:00 [facility] PO[facility]UCOSE (AUTOMATED) 2021-12-07 14:04:00 Daquan [facility] GLYCOSYLATED HEMOGLOBIN 2021-12-07 09:46:00 Edionwe, [facility] (A1C) [facility] POCT GLUCOSE (AUTOMATED) 2021-12-07 08:44:00 DaquanRigoberto [facility] POCT GLUCOSE (AUTOMATED) 2021-12-07 06:00:00 Daquan Pazkarol [facility] COVID-19 (ID NOW RAPID 2021-12-07 05:44:00 Maile Goldman [facility] TESTING) Medical Branch LAB ONLY COVID 2021-12-07 05:44:00 Maile Goldman [facility] INTERPRETATION [facility] POCT GLUCOSE(AGE >30DAYS) 2021-12-07 05:00:00 [facility] (AUTOMATED) 2021-12-07 04:59:00 Maile Goldman [facility] CT ABDOMEN PELVIS W 2021-12-07 04:45:13 Maile Goldman [facility] CONTRAST [facility] ACUTE CARE VENOUS BLOOD 2021-12-07 03:40:00 Maile Goldman [facility] GAS [facility] URINALYSIS 2021-12-07 03:24:00 Maile Goldman [facility] LIPASE 2021-12-07 02:01:00 Maile Goldman [facility] COMP. METABOLIC PANEL 2021-12-07 02:01:00 Maile Goldman [facility] ([id number]) [facility] CBC WITH DIFF 2021-12-07 02:01:00 Maile Goldman [facility] NOTICE OF PRIVACY 2021-12-07 01:33:31 Doctor Unassigned, No [facility] PRACTICES Name Medical Branch CONSENT/REFUSAL FOR 2021-12-07 01:33:10 Doctor Unassigned, No [facility] DIAGNOSIS AND TREATMENT Name Medical [place] XR LUMBAR SPINE 3 VW 2021-11-27 15:25:00 Ciaran Daniels [facility] KERRY,POST-VOID 2021-10-13 00:00:00 [facility] of RES,US,NON-IMG Medicine KERRY,POST-VOID 2021-10-13 00:00:00 Moriah Ji [facility],US,NON-IMG Medicine POCT URINALYSIS DIPSTICK 2021-10-13 00:00:00 [facility] Plan of Care Planned Activity Planned Date Details Comments Source Future Scheduled 2021-10-13 Screening for [facility] Col lege of Test 11:18:30 malignant neoplasm of Medici ne colon (procedure) [code = 028996220] Future Scheduled 2021-10-13 COVID-19 Vaccine (#1) [facility] Test 11:18:30 [code = COVID-19 Medicine Vaccine (#1)] Future Scheduled 2021-10-13 TETANUS SHOT (ADULT) [facility] Test 11:18:30 [code = TETANUS SHOT Medicin e (ADULT)] Future Scheduled 2021-10-13 BMI FOLLOW UP PLAN [facility] Test 11:18:30 [code = BMI FOLLOW UP Medici ne PLAN] Future Scheduled 2021-10-[address] [facility] Test 11:18:30 (procedure) [code = Medicine [id number]] Future Scheduled 2021-10-13 ZOSTER VACCINE (1 of [facility] Test 11:18:30 2) [code = ZOSTER Medicine VACCINE (1 of 2)] Future Scheduled 2021-10-13 FALL SCREEN [code = [facility] Test 11:18:30 FALL SCREEN] Medicine Future Scheduled 2021-10-13 Pneumococcal 65+ (1 - [facility] Test 11:18:30 PCV) [code = Medicine Pneumococcal 65+ (1 - PCV)] Future Scheduled 2021-10-13 MEDICARE AWV (Initial) B [facility] Test 11:18:30 [code = MEDICARE AWV Medicin e (Initial)] Future Scheduled 2021-10-13 FLU VACCINE > 6 MONTHS B [facility] Test 11:18:30 [code = FLU VACCINE > Medici ne 6 MONTHS] Future Scheduled 2020-11-12 Screening for [facility] Col lege of Test 11:35:55 malignant neoplasm of Medici ne colon (procedure) [code = 901594119] Future Scheduled 2020-11-12 COVID-19 Vaccine (1) [facility] Test 11:35:55 [code = COVID-19 Medicine Vaccine (1)] Future Scheduled 2020-11-12 TETANUS SHOT (ADULT) [facility] of Test 11:35:55 [code = TETANUS SHOT Medicin e (ADULT)] Future Scheduled 2020-11-12 BMI FOLLOW UP PLAN [facility] of Test 11:35:55 [code = BMI FOLLOW UP Medici ne PLAN] Future Scheduled 2020-11-[address] [facility] Test 11:35:55 (procedure) [code = Medicine 393947160] Future Scheduled 2020-11-12 ZOSTER VACCINE (1 of [facility] of Test 11:35:55 2) [code = ZOSTER Medicine VACCINE (1 of 2)] Future Scheduled 2020-11-12 FALL SCREEN [code = [facility] of Test 11:35:55 FALL SCREEN] Medicine Future Scheduled 2020-11-12 PNEUMOVAX >=65 [facility] llege of Test 11:35:55 (PPSV23) [code = Medicine PNEUMOVAX >=65 (PPSV23)] Future Scheduled 2020-11-12 MEDICARE IPPE (WELCOME B [facility] of Test 11:35:55 TO MEDICARE) [code = Medicin e MEDICARE IPPE (WELCOME TO MEDICARE)] Future Scheduled 2020-11-12 FLU VACCINE > 6 MONTHS B [facility] Test 11:35:55 [code = FLU VACCINE > Medici ne 6 MONTHS] Encounters Start End Encounter Admission Attending Care Care Encounter Source Date/Time Date/Time Type Type Clinicians Facility Department ID 2021-02-19 Outpatient [facility] Surgery [id number] [facility] 15:46:05 MORIAH 2021-12-12 2021-12-12 Transition CYRUS Cuevas [id number] Univers 00:00:00 00:00:00 of Care Charity PRAKASH [id number] i ty of [place]2.686 [place] [id number] [address] 2021-12-06 2021-12-09 Inpatient X [facility] [id number] Univers 20:46:00 13:02:00 BOLIVAR macario of [facility] 2021-12-06 2021-12-09 Hospital Maile Goldman [facility] [id number] Univers 20:46:00 13:02:00 Encounter Rigoberto Ojeda [id number] ity of Branden Monroylangui SOARES 4.2.7.2.686 [facility] [id number] [facility] [address] [place] 2021-11-27 2021-11-27 Outpatient R [facility] [id number] Univers 10:01:43 23:59:00 CIARAN macario o f [facility] 2021-11-27 2021-11-27 [facility] [id number] Univers 10:01:43 23:59:00 Encounter [facility] [id number] ity of [place] 4.2.7.2.686 Lance as SOCO?BLEA [id number] [facility] [address] [place] MEDICAL OFFICE [facility] 2021-11-27 2021-11-27 [facility] 1.2.840 .[id number] [facility] 09:40:00 10:09:43 Care [facility] [id number] ity of [place] 4.2.7.2.686 Lance as SOCO?BLEA [id number] [address] OFFICE [facility] 2021-11-27 2021-11-27 Outpatient R [facility] [id number] Univers 10:05:00 10:05:00 CIARAN [id number] renaldo o f [facility] 2021-11-27 2021-11-27 Telephone [facility] [id number] Univers 00:00:00 [facility]:00:00 [facility] [id number] ity of [place] 4.2.7.2.686 Lance as SOCO?BLEA [id number] [address] OFFICE [facility] 2021-10-13 2021-10-13 Office ALYCE JI [id number] [facility] 10:36:55 11:18:44 Visit MORIAH AMBULATOR 350.1.13.21 College Y 0.2.7.2.686 of [id number] Medi mason 300 e 2021-09-08 2021-09-08 [facility] [id number] Univers 16:00:00 16:15:00 Visit [facility] [id number] it y of JULIO C 4.2.7.2.686 Lance as SOCO?BLEA [id number] Al dicmikey EAST [address] [place] [address] OFFICE BUILDING 2020-12-23 2020-12-23 Outpatient ALYCE JI [facility] [id number] [facility] 10:33:38 11:13:46 CHRISTELAINEER Co llege of Medicin e 2020-11-12 2020-11-12 Office QUINTON Ji [id number] [facility] 11:58:41 12:08:41 [facility] 350.1.13.21 College P Y 0.2.7.2.686 of [id number] [facility] mason 300 e 2020-10-04 2020-10-04 Outpatient [facility] [id number] SLE 00:00:00 00:00:00 2020-10-04 2020-10-04 Outpatient [facility] [id number] SLE 00:00:00 00:00:00 2020-10-04 2020-10-04 Outpatient [facility] [id number] SLE 00:00:00 00:00:00 2020-09-17 2020-09-17 Outpatient [facility] [id number] SLE 00:00:00 00:00:00 Results Test Description Test Time Test Comments Results Result Comments Source POCT GLUCOSE (AUTOMATED) 2021-12-09 17:03:36 Test Item Value Reference Range Interpretation Comme nts POCT GLU (test code = 8653626723) 242 mg/dL 70-110 H Lab Interpretation (test code = 16709-0) Abnormal [facility] GLUCOSE (AUTOMATED)2021-12-09 13:05:03 Test Item Value Reference Range Interpretation Comments POCT GLU (test code = 2814377765) 202 mg/dL 70-110 H Lab Interpretation (test code = Abnormal 03821-3) [facility] GLUCOSE (AUTOMATED)2021-12-09 02:24:26 Test Item Value Reference Range Interpretation Comments POCT GLU (test code = 1451930858) 213 mg/dL 70-110 H Lab Interpretation (test code = Abnormal 99873-0) [facility] GLUCOSE (AUTOMATED)2021-12-09 01:41:58 Test Item Value Reference Range Interpretation Comments POCT GLU (test code = 2610686141) 233 mg/dL 70-110 H Lab Interpretation (test code = Abnormal 41617-9) [facility] GLUCOSE (AUTOMATED)2021-12-08 21:42:58 Test Item Value Reference Range Interpretation Comments POCT GLU (test code = 9184406048) 253 mg/dL 70-110 H Lab Interpretation (test code = Abnormal 29798-1) [facility] GLUCOSE (AUTOMATED)2021-12-08 17:11:56 Test Item Value Reference Range Interpretation Comments POCT GLU (test code = 2016566399) 181 mg/dL 70-110 H Lab Interpretation (test code = Abnormal 80657-0) [facility] GLUCOSE (AUTOMATED)2021-12-08 10:37:58 Test Item Value Reference Range Interpretation Comments POCT GLU (test code = 4717350510) 254 mg/dL 70-110 H Lab Interpretation (test code = Abnormal 53604-6) [facility] GLUCOSE (AUTOMATED)2021-12-08 04:13:23 Test Item Value Reference Range Interpretation Comments POCT GLU (test code = 3874206403) 270 mg/dL 70-110 H Lab Interpretation (test code = Abnormal 63795-8) [facility] GLUCOSE (AUTOMATED)2021-12-07 21:21:09 Test Item Value Reference Range Interpretation Comments POCT GLU (test code = 9647083276) 240 mg/dL 70-110 H Lab Interpretation (test code = Abnormal 72187-0[facility] 17:39:23 Test Item Value Reference Range Interpretation Comments POCT GLU (test code = 9477228607) 160 mg/dL 70-110 H Lab Interpretation (test code = Abnormal 86391-2) [facility] GLUCOSE (AUTOMATED)2021-12-07 14:07:12 Test Item Value Reference Range Interpretation Comments POCT GLU (test code = 3248213089) 203 mg/dL 70-110 H Lab Interpretation (test code = Abnormal 89122-5) [facility]2021-12-07 11:04:48 Test Item Value Reference Range Interpretation Comments HGB A1C (test code = 9.3 % 4-5.7 H 4548-4) YONAS (test code = YONAS) Reference RangesNormal: <5.7%Prediabetes: 5.7 - 6.4%Diabetes: > 6.5% Lab Interpretation (test Abnormal code = 35749-8) [facility] GLUCOSE (AUTOMATED)2021-12-07 08:49:59 Test Item Value Reference Range Interpretation Comments POCT GLU (test code = 5261828311) 381 mg/dL 70-110 H Lab Interpretation (test code = Abnormal 33778-6) [facility] GLUCOSE (AUTOMATED)2021-12-07 06:22:37 Test Item Value Reference Range Interpretation Comments POCT GLU (test code = 7030713033) 425 mg/dL 70-110 H Lab Interpretation (test code = Abnormal 48253-5) [facility] GLUCOSE (AUTOMATED)2021-12-07 05:06:01 Test Item Value Reference Range Interpretation Comments POCT GLU (test code = 9824818359) 434 mg/dL 70-110 H Lab Interpretation (test code = Abnormal 04349-4) [facility] GLUCOSE(AGE >30DAYS)2021-12-07 05:00:00 Test Item Value Reference Range Interpretation Comments POCT Glu (age>30days) (test code = 434 mg/dL 70-110 A 3342) Lab Interpretation (test code = Abnormal 65732-9) [facility] with [id number] 03:15:08 Test Item Value Reference Range Interpretation Comments WBC (test code = See_Comment H [Automated 6590-2) message] The system which generated this result transmit art reference range : 4.20 - 10.70 10*3/?L. The reference range was not used to interpret this result as normal/abnormal . RBC (test code = See_Comment [Automated 809-8) message] The system which generated this result transmit art reference range : 4.26 - 5.52 10*6/?L. The reference range was not used to interpret this result as normal/abnormal . HGB (test code = 16.6 g/dL 12.2-16.4 H 718-7) HCT (test code = 46.6 % 38.4-49.3 4544-3) MCV (test code = 85.8 fL 81.7-95.6 787-2) MCH (test code = 30.6 pg 26.1-32.7 785-6) MCHC (test code = 35.6 g/dL 31.2-35 H 786-4) RDW-SD (test code = 40.5 fL 38.5-51.6 37509-1) RDW-CV (test code = 13.2 % 12.1-15.4 788-0) PLT (test code = See_Comment H [Automated 777-3) message] The system which generated this result transmit art reference range : 150 - 328 10*3/ ?L. The reference range was not u sed to interpret th is result as normal/abnormal . MPV (test code = 9.6 fL 9.8-13 L 75123-3) NRBC/100 WBC (test See_Comment [Automat ed code = 8946887689) message] The system which generated this result transmit art reference range : 0.0 - 10.0 /100 WBCs. The reference range was not used to interpret this result as normal/abnormal . NRBC x10^3 (test code See_Comment [Auto mated = 7359549864) message] The system which generated this result transmit art reference range : 10*3/?L. The reference range was not used to interpret this result as normal/abnormal . SEG % (test code = 75 % 33-76 77939-2) BAND % (test code = 7 % 0-1 H 06595-7) LYMPH % (test code = 9 % 14-54 L 15392-9) MONO % (test code = 9 % 0-4 H 33983-8) ANC (test code = 16.12 10*3/uL 1.99-6.95 H 753-4) Lab Interpretation Abnormal (test code = 63123-8) [facility] [id number] 02:27:42 Test Item Value Reference Range Interpretation Comments NA (test code = 130 mmol/L 135-145 L 8847153961) K (test code = 4.5 mmol/L 3.5-5 4622768903) CL (test code = 81 mmol/L 98-108 L 8521565941) CO2 TOTAL (test code = 36 mmol/L 23-31 H 6943339345) AGAP (test code = 2-16 4086442720) BUN (test code = 36 mg/dL 7-23 H 4329215166) GLUCOSE (test code = 426 mg/dL 70-110 H 0491669029) CREATININE (test code = 0.94 mg/dL 0.6-1.25 1184138673) TOTAL BILI (test code = 1.0 mg/dL 0.1-1.6 0366478759) CALCIUM (test code = 9.8 mg/dL 8.6-10.6 8081078833) T PROTEIN (test code = 7.7 g/dL 6.3-8.2 2812399781) ALBUMIN (test code = 4.9 g/dL 3.5-5 6668471908) ALK PHOS (test code = 61 U/L 34-122 2464764901) ALTv (test code = 57 U/L 5-50 H 1742-6) AST(SGOT) (test code = 47 U/L 13-40 H 4896148498) eGFR (test code = mL/min/1.73m2 7109072448) YONAS (test code = YONAS) Association of Glomerular Filtration Rate (GFR) and Staging of Kidney Disease* + --+ --+ ------+| GFR (mL/min/1.73 m2) ?| With Kidney Damage ?| ?Without Kidney Damage+ --------+ --------+ +| ?>90 ?| ?Stage one ?| ? Normal ?+ ---+ ---+ -------+| ?60-89 ?| ?Stage two ?| ? Decreased GFR ? + --+ --+ ------+| ?30-59 ?| ?Stage three ?| ? Stage three ? + --+ --+ ------+| ?15-29 ?| ?Stage four ? | ? Stage four ?+ ---+ ---+ -------+| ?<15 (or dialysis) ? ?| ?Stage five ? | ? Stage five ?+ ---+ ---+ -------+ *Each stage assumes the associated GFR level has been in effect for at least three months. ?Stages 1 to 5, with or without kidney disease, indicate chronic kidney disease. Notes: Determination of stages one and two (with eGFR >59mL/min/1.73 m2) requires estimation of kidney damage for at least three months as defined by structural or functional abnormalities of the kidney, manifested by either:Pathological abnormalities or Markers of kidney damage (including abnormalities in the composition of the blood or urine or abnormalities in imaging tests). Lab Interpretation Abnormal (test code = 61498-6) [facility], [id number] 02:27:21 Test Item Value Reference Range Interpretation Comments LIPASE (test code = 5495301845) 23 U/L 0-220 Lab Interpretation (test code = Normal 65542-8) [facility],POST-VOID RES,US,[id number] 00:00:00 Test Item Value Reference Range Interpretation Comments PVR (test code = 6116) [facility] [id number] 09:04:00 Test Item Value Reference Range Interpretation Comments POC-GLUCOSE METER 163 mg/dL 70-110 H : TESTED A T [facility] (BEAKER) (test code = ELTON [facility], 1538) [address]: Senior Corporate Strategy Manager/Techni karine ID = [id number] for PRIMITIVO MartinezTeresaDEBORAH Matthew URINE [id number] 10:47:00 Test Item Value Reference Range Interpretation Comments CULTURE (BEAKER) (test <10,000 col/mL skin code = 1095) yesy SARS-COV2/RT-PCR ([facility])2020-10-04 22:28:00 Test Item Value Reference Range Interpretation Comments SARS-COV2/RT-PCR (test Negative Not Detected, Negative, code = 5263989) See external report for linked test SARS-COV-2 PERFORMING LAB [facility] (test code = 0585774) Negative result for this test determines that SARS-CoV-2 RNA was not present in the specimen above the Limit of Detection (LOD). However, Negative results do not preclude SARS-CoV-2 infection and should not be used as the sole basis for treatment or patient management decisions. Negative results must be combined with clinical observations, patient history, and [...] a nasopharyngeal swab specimen collected from individuals suspected of COVID-19 by their healthcare provider.This test [...] justifying the authorization of the emergency use ofin vitro diagnostic tests for detection and/or diagnosis of COVID-19 is terminated under Section 564(b)(2) of the Act or the EUA is revoked under Section 564(g) of the Act.Testing was performed using the Lawrence SARS-CoV-2 assay.Fact Sheet for Healthcare Providers:https://www.[employer].lawrence/genesis/RT_SAR E-ZeQ-0_WEE_Hzqg_Jjtsz_84-835208.pdfFact Sheet for Healthcare Patients:https://www.molecular.lawrence/s al/NC_NNWE-TqD-3_Wmidsxd_Buts_Zzmif_MM_37-263490V5.pdfPerforming Laboratory:[facility], [place] [address]NIY AND CREATININE [id number] 10:33:00 Test Item Value Reference Range Interpretation Comments BLOOD UREA NITROGEN 15 mg/dL 7-21 (BEAKER) (test code = 354) CREATININE (BEAKER) 0.97 mg/dL 0.57-1.25 Specimen slightly (test code = 358) hemolyzed BUN/CREAT RATIO 15 For a normal (BEAKER) (test code individu al on a = 9001457344) normal diet, t he reference inter man for the mass ra malini ranges between 12:1 and 20:1 (BUN i n mg/dL/creatinin e in mg/dL) EGFR (BEAKER) (test 77 mL/min/1.73 ESTIMA ART GFR IS code = 1092) sq m NOT ACCURATE CREATININE CLEARANCE IN PREDICTING GLOMERULAR FILTRATION RATE . ESTIMATED GFR I S NOT APPLICABLE FOR DIALYSIS PATIEN TS. BASIC METABOLIC [id number] 10:33:00 Test Item Value Reference Range Interpretation [...] S NOT APPLICABLE FOR DIALYSIS PATIEN TS. Senior Corporate Strategy Manager ID - CARLA FURINALYSIS W/ [id number] 10:30:00 Test Item Value Reference Range Interpretation [...] (test code Urine, Clean Catch = 2795) Senior Corporate Strategy Manager ID - [auto]Senior Corporate Strategy Manager ID - techCBC W/PLT COUNT & AUTO [...] % 0-1 PERCENT (BEAKER) (test code = 2421)
[2021-12-19 22:11] LABS: Urine Blood Negative (Negative); Urine Glucose Negative (Negative); Urine Protein Negative (Negative)
[2021-12-19 22:44] LABS: Absolute Lymphocytes (CBC) 1.6 K/uL (0.7-4.9); Hematocrit 38.5 % (39.6-49.0); Lymphocytes % 17.7 % (15.3-44.8); MCV 86.6 fL (80-100); MPV 7.6 fL (7.6-11.3); RBC Red Blood Cell Count 4.45 M/uL (4.33-5.43)
[2021-12-19 22:51] LABS: Potassium 3.7 mmol/L (3.5-5.1); Troponin High Sensitivity 9.7 pg/mL (<58.9)
[2021-12-19] MEDS ORDERED: MAGNES/ALUMIN/SIMET 30ML UCUP ONE (23:24)
[2021-12-19] MEDS ORDERED: LORazepam 2 MG/ML VIAL ONE (23:26)
[2021-12-19] MEDS ORDERED: LIDOCAINE VISCOUS 2% SOLN 15 ML UDC ONE (23:27)
--- NOTE | 2021-12-20 00:59 | EDPHYS ---
Physician Documentation [facility] Name: Sandip Mon Age: 71 yrs Sex: Male : 1950 Arrival Date: 12/19/2021 Time: 21:47 Bed 13 Private MD: ED Physician Meryl Valle HPI: 12/19 23:01 This 71 yrs old Male presents to ER via Ambulatory with complaints of Nausea, Blood sd2 Pressure Problem, Abdominal Problem. 23:01 71-year-old male presents with chief complaint of "I feel weird." He reports that this sd2 started last night after he took his last dose of hydrocodone. He reports that he is on hydrocodone for chronic back pain and has a surgery scheduled on the with his neurosurgeon. He did recently have a small bowel obstruction approximately 2 weeks ago and have been trying to decrease his hydrocodone dosage. He also stopped taking his muscle relaxers as of yesterday when he ran out of them. He states he feels anxious and has not been able to sleep last night or tonight. He also states his blood pressure has been up and down when he has been checking it at home. He has also had some associated indigestion and heartburn with belching. He denies any chest pain, shortness of breath, nausea, vomiting, diarrhea or urinary symptoms. He did have a normal bowel movement today. He otherwise denies any acute complaints at this time.. Historical: - Allergies: 21:55 No Known Allergies; eh3 - PMHx: 21:55 diabetes mellitus; Hypertensive disorder; eh3 - PSHx: 21:55 Appendectomy; back surgery; Prostate surgery; eh3 - Immunization history:: Adult Immunizations up to date, Client reports having NOT received the Covid vaccine. - Social history:: Smoking status: Patient denies any tobacco usage or history of. Patient/guardian denies using alcohol. ROS: 23:01 Constitutional: Negative for fever, chills, and weight loss, Eyes: Negative for injury, sd2 pain, redness, and discharge, Cardiovascular: Negative for chest pain, palpitations, and edema, Respiratory: Negative for shortness of breath, cough, wheezing. Abdomen/GI: Negative for abdominal pain, nausea, vomiting, diarrhea. MS/Extremity: Negative for injury and deformity, Skin: Negative for injury, rash, and discoloration, Psych: Positive for anxiety. Negative for depression and suicidal ideation. Exam: 23:01 Constitutional: This is a well developed, well nourished patient who is awake, alert, sd2 and in no acute distress. Head/Face: Normocephalic, atraumatic. Eyes: EOMI, normal conjunctiva bilaterally Chest/axilla: Normal chest wall appearance and motion. Nontender with no deformity. Cardiovascular: Regular rate and rhythm with a normal S1 and S2. No gallops, murmurs, or rubs. 2+ distal pulses. Respiratory: Lungs have equal breath sounds bilaterally, clear to auscultation and percussion. No rales, rhonchi or wheezes noted. No increased work of breathing, no retractions or nasal flaring. Abdomen/GI: Soft, non-tender, with normal bowel sounds. No guarding or rebound. No evidence of tenderness throughout. Skin: Warm, dry with normal turgor. Normal color with no rashes, no lesions, and no evidence of cellulitis. MS/ Extremity: Pulses equal, no cyanosis. Neurovascular intact. Full, normal range of motion. Ambulatory without difficulty. Psych: Awake, alert, with orientation to person, place and time. Behavior, mood, and affect are within normal limits. 23:04 ECG was reviewed by the Attending Physician. NSR, rate 97, no STEMI criteria sd2 Vital Signs: 21:53 BP 129 / 86; Pulse 102; Resp 18; Temp 98.2(O); Pulse Ox 97% on R/A; Weight 99.79 kg; eh3 Height 5 ft. 11 in. (180.34 cm); Pain 0/10; 23:15 BP 130 / 70; Pulse 80; Resp 18; Pulse Ox 98% on R/A; jb4 12/20 00:45 BP 129 / 71; Pulse 74; Resp 16; Pulse Ox 97% on R/A; jb4 12/19 21:53 Body Mass Index 30.68 (99.79 kg, 180.34 cm) eh3 MDM: 12/19 22:49 Patient medically screened. sd2 23:01 Differential diagnosis: ACS, anemia, dehydration, electrolyte abnormality, medication sd2 withdrawal, anxiety among others. Data reviewed: vital signs, nurses notes. 12/20 00:55 Data reviewed: lab test result(s), EKG, radiologic studies. Counseling: I had a sd2 detailed discussion with the patient and/or guardian regarding: the historical points, exam findings, and any diagnostic results supporting the discharge/admit diagnosis, lab results, radiology results, the need for outpatient follow up, to return to the emergency department if symptoms worsen or persist or if there are any questions or concerns that arise at home. Medical screen evaluation completed. [facility] emergency medical condition absent. ED course: Labs and imaging reviewed. Trop neg. EKG with no ischemic changes. Labs otherwise grossly WNCL. CXR with no acute process. Pt resting and sleeping comfortably after Ativan given. Suspect there may be an element of withdrawal from patient going off his opioids and muscle relaxers yesterday. Advised to wean off if he wants to go off of them and will write for more muscle relaxers. Pt comfortable with plan and verbalizes understanding of discharge plan and strict return precautions.. 12/19 21:57 Order name: Basic Metabolic Panel; Complete Time: 22:58 [facility] 12/19 21:57 Order name: CBC with Diff; Complete Time: 22:58 [facility] 12/19 21:57 Order name: Troponin HS; Complete Time: 22:58 3 12/19 21:57 Order name: XRAY Chest (1 view) [facility] 12/19 22:11 Order name: Urine Dipstick-Ancillary; Complete Time: 22:58 EDMS 12/19 21:57 Order name: EKG; Complete Time: 21:58 3 12/19 21:57 Order name: Cardiac monitoring; Complete Time: 23:09 [facility] 12/19 21:57 Order name: EKG - Nurse/Tech; Complete Time: 21:57 [facility] 12/19 21:57 Order name: IV Saline Lock; Complete Time: 22:06 3 12/19 21:57 Order name: Labs collected and sent; Complete Time: 22:06 [facility] 12/19 21:57 Order name: O2 Per Protocol; Complete Time: 21:57 [facility] 12/19 21:57 Order name: O2 Sat Monitoring; Complete Time: 21:57 [facility] 12/19 21:57 Order name: Urine Dipstick-Ancillary (obtain specimen); Complete Time: 22:06 [facility] Administered Medications: 12/19 23:54 Drug: GI Cocktail without - (Maalox Suspension 30 ml, Lidocaine Liquid 2 % 15 jb4 ml) Route: PO; 12/20 01:37 Follow up: Response: No adverse reaction; Marked relief of symptoms jb4 12/19 23:57 Drug: Ativan (LORazepam) 0.5 mg Route: IVP; Site: left antecubital; jb4 12/20 01:37 Follow up: Response: No adverse reaction; Marked relief of symptoms; Anxiety decreased jb4 Disposition Summary: 12/20/21 00:58 Discharge Ordered Location: Home sd2 Problem: new sd2 Symptoms: have improved sd2 Condition: Stable sd2 Diagnosis - Dificulty sleeping sd2 - Indigestion sd2 - Possible opiate withdrawal sd2 Followup: sd2 - With: Dillon Albright MD - When: As currently scheduled - Reason: Continuance of care, Re-evaluation by your physician Followup: sd2 - With: Emergency Department - When: As needed - Reason: Discharge Instructions: - Discharge Summary Sheet sd2 - Opioid Withdrawal sd2 Forms: - Medication Reconciliation Form sd2 - Thank You Letter sd2 - Antibiotic Education sd2 - Prescription Opioid Use sd2 Prescriptions: - methocarbamol 750 mg Oral Tablet - take 1 tablet by ORAL route 3 times per day Take every 8 hours up to 3 times a sd2 day as needed for muscle spasm.; 15 tablet; Refills: 0, Product Selection Permitted Signatures: Dispatcher [employer] Dillon Will, RN RN jb4 Stephanie Licea RN RN eh3 Meryl Valle MD MD sd2
--- NOTE | 2021-12-20 00:59 | ER ---
Nurse's Notes [facility] Name: Sandip Mon Age: 71 yrs Sex: Male : 1950 Arrival Date: 12/19/2021 Time: 21:47 Bed 13 Private MD: Diagnosis: Dificulty sleeping;Indigestion;Possible opiate withdrawal Presentation: 12/19 21:53 Chief complaint: Patient states: Reports SBO two weeks ago. Pt states "I have been eh3 feeling weird for the past 24 hours - Dizzy, jittery, unable to sleep." Reports D/C hydrocodone this morning for chronic back pain - trying to make it until my back surgery on the 12/29/21. Coronavirus screen: At this time, the client does not indicate any symptoms associated with coronavirus-19. Ebola Screen: No symptoms or risks identified at this time. Initial Sepsis Screen: Does the patient meet any 2 criteria? No. Patient's initial sepsis screen is negative. Does the patient have a suspected source of infection? No. Patient's initial sepsis screen is negative. Risk Assessment: Do you want to hurt yourself or someone else? Patient reports no desire to harm self or others. Onset of symptoms was December 19, 2021. 21:53 Method Of Arrival: Ambulatory 3 21:53 Acuity: ARNULFO 3 eh3 Triage Assessment: 21:55 General: Appears in no apparent distress. comfortable, Behavior is calm, cooperative, eh3 appropriate for age. Pain: Denies pain. EENT: No signs and/or symptoms were reported regarding the EENT system. Neuro: Level of Consciousness is awake, alert, obeys commands, Oriented to person, place, time, situation. Cardiovascular: Capillary refill < 3 seconds Patient's skin is warm and dry. Rhythm is sinus rhythm. Respiratory: Airway is patent Respiratory effort is even, unlabored. GI: Abdomen is flat, non-distended, Reports nausea. : No signs and/or symptoms were reported regarding the genitourinary system. Derm: No signs and/or symptoms reported regarding the dermatologic system. Musculoskeletal: No signs and/or symptoms reported regarding the musculoskeletal system. Historical: - Allergies: 21:55 No Known Allergies; eh3 - PMHx: 21:55 diabetes mellitus; Hypertensive disorder; eh3 - PSHx: 21:55 Appendectomy; back surgery; Prostate surgery; eh3 - Immunization history:: Adult Immunizations up to date, Client reports having NOT received the Covid vaccine. - Social history:: Smoking status: Patient denies any tobacco usage or history of. Patient/guardian denies using alcohol. Screenin:10 Abuse screen: Denies threats or abuse. Nutritional screening: No deficits noted. jb4 Tuberculosis screening: No symptoms or risk factors identified. Fall Risk None identified. Assessment: 22:10 Reassessment: see triage note. jb4 22:10 Reassessment: Patient appears in no apparent distress at this time. Patient and/or jb4 family updated on plan of care and expected duration. Pain level reassessed. Patient is alert, oriented x 3, equal unlabored respirations, skin warm/dry/pink. 22:25 Reassessment: Urine, Labs, EKG completed in triage. 1 12/20 00:30 Reassessment: Patient appears in no apparent distress at this time. Patient and/or jb4 family updated on plan of care and expected duration. Pain level reassessed. Patient is alert, oriented x 3, equal unlabored respirations, skin warm/dry/pink. 01:35 Reassessment: Patient appears in no apparent distress at this time. Patient and/or jb4 family updated on plan of care and expected duration. Pain level reassessed. Patient is alert, oriented x 3, equal unlabored respirations, skin warm/dry/pink. Patient states feeling better. Patient states symptoms have improved. Vital Signs: 12/19 21:53 BP 129 / 86; Pulse 102; Resp 18; Temp 98.2(O); Pulse Ox 97% on R/A; Weight 99.79 kg; 3 Height 5 ft. 11 in. (180.34 cm); Pain 0/10; 23:15 BP 130 / 70; Pulse 80; Resp 18; Pulse Ox 98% on R/A; jb4 12/20 00:45 BP 129 / 71; Pulse 74; Resp 16; Pulse Ox 97% on R/A; jb4 12/19 21:53 Body Mass Index 30.68 (99.79 kg, 180.34 cm) [facility] ED Course: 12/19 21:47 Patient arrived in ED. ja2 21:55 Triage completed. 3 21:55 Arm band placed on right wrist. EKG completed in triage. Results shown to MD. EKG eh3 completed in triage. Results shown to MD. 22:05 Inserted saline lock: 20 gauge in left antecubital area, using aseptic technique. Blood eh3 collected. 22:10 Patient has correct armband on for positive identification. Bed in low position. Call jb4 light in reach. Side rails up X 1. Client placed on continuous cardiac and pulse oximetry monitoring. NIBP monitoring applied. monitoring manager on. 22:26 XRAY Chest (1 view) In Process Unspecified. EDMS 22:49 Meryl Valle MD is Attending Physician. sd2 22:55 Dillon Nieto, RN is Primary Nurse. jb4 12/20 00:57 Dillon Albright MD is Referral Physician. sd2 01:36 No provider procedures requiring assistance completed. IV discontinued, intact, jb4 bleeding controlled, No redness/swelling at site. Pressure dressing applied. Administered Medications: 12/19 23:54 Drug: GI Cocktail without - (Maalox Suspension 30 ml, Lidocaine Liquid 2 % 15 jb4 ml) Route: PO; 12/20 01:37 Follow up: Response: No adverse reaction; Marked relief of symptoms jb4 12/19 23:57 Drug: Ativan (LORazepam) 0.5 mg Route: IVP; Site: left antecubital; jb4 12/20 01:37 Follow up: Response: No adverse reaction; Marked relief of symptoms; Anxiety decreased jb4 Medication: 12/19 23:15 VIS not applicable for this client. jb4 Outcome: 12/20 00:58 Discharge ordered by . sd2 01:36 Discharged to home ambulatory. jb4 01:36 Condition: stable 01:36 Discharge instructions given to patient, Instructed on discharge instructions, follow up and referral plans. no drinking with medication, no driving heavy equipment, medication usage, Demonstrated understanding of instructions, follow-up care, medications, Prescriptions given X 1. 01:37 Patient left the ED. jb4 Signatures: Dispatcher [employer] EDMS Dillon Nieto, JIMBO RN jb4 Gabbi Palacios RN RN [email or web address] Luzmaria Olivarez Erin, RN RN eh3 Meryl Valle MD MD sd2
[2021-12-20 05:11] VITALS: TEMP 98.2
[2021-12-20 05:16] VITALS: BP 129/71; O2SAT 97
--- NOTE | 2021-12-20 10:38 | EKG ---
Test Date: 2021-12-19 Test Time: 22:03:40 [employer]oline Locomotive Crane Operator: KELBY MEASUREMENT RESULTS: Intervals: Rate: 97 [place]: 170 QRSD: 90 QT: 338 QTc: 429 [place]: P: 41 [place]: 170 QRS: -35 T: 0 INTERPRETIVE STATEMENTS: Normal sinus rhythm Left axis deviation Minimal voltage criteria for LVH, may be normal variant Abnormal ECG No previous ECG available for comparison Electronically Signed On 12-20-21 10:36:03 CDT by Frederick Fuller
--- NOTE | 2021-12-20 16:04 | RAD REPORT ---
EXAM DESCRIPTION: RAD - Chest Single View - 12/19/2021 10:24 pm CLINICAL HISTORY: CHEST PAIN. COMPARISON: None. TECHNIQUE: Single view AP chest radiograph(s). FINDINGS: No pulmonary infiltrate identified. No pleural effusion. No pneumothorax. Mild cardiomegal y. No significant osseous abnormality. IMPRESSION: No acute cardiopulmonary abnormality identified by radiograph. Electronically signed by: Anastasiia Weeks MD 12/19/2021 11:24 PM CDT
== END 2021-12-20 01:37 | disposition home or self-care (01) ==
LOC: ER 21:42
DX: G47.00 Insomnia, unspecified (principal); K30 Functional dyspepsia; E11.9 Type 2 diabetes mellitus without complications; I10 Essential (primary) hypertension
CPT/HCPCS: 36415; 71045; 80048; 81003; 84484; 85025; 93005; 96374; 99284